=== PATIENT | male | born 1955 | race Caucasian/White ===

== ENCOUNTER 2018-11-28 12:16 | Emergency (ER) | payer OTHER ==
--- OUTSIDE RECORDS SUMMARY | 2018-11-28 12:23 | XMS REPORT | Clinical Summary ---
:1955 Author Organization [facility] Address [address] [place] [address] Care Team Providers Name Role Phone Yareli Primary Care Provider Allergies No Known Allergies Medications Medication Sig Dispensed Refills Start Date End Date Status allopurinol (ZYLOPRIM) Take 100 mg by 0 Active 100 MG tablet mouth daily. aspirin 81 MG chewable Take 81 mg by 0 Active tablet mouth daily. atorvastatin (LIPITOR) Take 40 mg by 0 Active 40 MG tablet mouth daily. furosemide (LASIX) 20 Take 20 mg by 0 Active MG tablet mouth 3 (three) times daily. gabapentin (NEURONTIN) Take 200 mg by 0 Active 100 MG capsule mouth 3 (three) times daily. lamoTRIgine (LAMICTAL) Take 150 mg by 0 Active 150 MG tablet mouth every 12 (twelve) hours. levETIRAcetam (KEPPRA) Take 500 mg by 0 Active 500 MG tablet mouth every 12 (twelve) hours. lisinopril Take 40 mg by 0 Active (PRINIVIL,ZESTRIL) 40 mouth daily. MG tablet metFORMIN (GLUCOPHAGE) Take 500 mg by 0 Active 500 MG tablet mouth 2 (two) times daily with breakfast and dinner. metoprolol (TOPROL-XL) Take 100 mg by 0 Active 100 MG 24 hr tablet mouth daily. phenytoin (DILANTIN) Take 200 mg by 0 Active 100 MG ER capsule mouth 2 (two) times daily. saxagliptin 5 mg Tab Take 2.5 mg by 0 Active mouth daily. thiamine 100 MG tablet Take 100 mg by 0 Active mouth daily. lacosamide 200 mg Tab Take 1 tablet (200 60 tablet 3 07/01/2017 Active mg total) by mouth 2 (two) times daily. 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 Last Filed Vital Signs Not on file Plan of Treatment Not on file Results Not on fileafter 11/27/2017 Insurance Payer Benefit Plan / Group Subscriber ID Type Phone Address MEDICARE MEDICARE A B xxxxxxxxxx Medicare Advance Directives For more information, please contact:[address] [phone] Code Status Date Activated Date Inactivated Comments Full Code 06/25/2017 9:02 PM 07/01/2017 12:56 PM This code status was determined by: Patient
--- OUTSIDE RECORDS SUMMARY | 2018-11-28 12:25 | XMS REPORT ---
:1955 [facility] Address [address] [place] [id number] Care Team Providers Name Role Phone MARY NICHOLE Unavailable Unavailable Problems This patient has no known problems. Allergies, Adverse Reactions, Alerts This patient has no known allergies or adverse reactions. Medications This patient has no known medications. Results Test Description Test Time Test Comments Text Results Atomic Results Result Comments BLOOD CULTURE 2017-07-03 00:00:00 Test Item Value Reference Range Comments CULTURE (BEAKER) (test idih=2258) No growth in 5 days BRONCHIAL CULTURE + GRAM [id number] 14:14:00 Test Item Value Reference Range Comments CULTURE (BEAKER) (test 1+ Normal respiratory deepali pvbj=8188) present GRAM STAIN RESULT (BEAKER) 1+ WBCs (test lvuh=6985) GRAM STAIN RESULT (BEAKER) No organisms seen (test ptjx=33403) BLOOD [id number] 11:00:00 Test Item Value Reference Range Comments CULTURE (BEAKER) (test tryn=1104) No growth in 5 days POCT-GLUCOSE [id number] 06:39:00 Test Item Value Reference Range Comments POC-GLUCOSE METER (BEAKER) 131 mg/dL 70-110 TESTED AT [place] [id number] [facility] (test nkdc=0206) [facility] [address] POCT-GLUCOSE [id number] 00:42:00 Test Item Value Reference Range Comments POC-GLUCOSE METER (BEAKER) 180 mg/dL 70-110 TESTED AT [place] [id number] [facility] (test yyga=3095) [facility] [address] POCT-GLUCOSE [id number] 18:26:00 Test Item Value Reference Range Comments POC-GLUCOSE METER (BEAKER) 111 mg/dL 70-110 TESTED AT [address] (test nfol=3627) [facility] [address] [id number] 14:23:00 Test Item Value Reference Range Comments PROCALCITONIN (BEAKER) (test wvtx=4235) < ng/mL <0.05 SEPSIS RISK (ng/mL)Low: 0.05-0.50Intermediate: 0.51-2.00High: & gt;=2.01PHENYTOIN LEVEL, [id number] 12:31:00 Test Item Value Reference Range Comments PHENYTOIN (DILANTIN) (BEAKER) (test mufn=899) 7.9 ug/mL 10.0-20.0 VANCOMYCIN LEVEL, [id number] 12:25:00 Test Item Value Reference Range Comments VANCOMYCIN TROUGH (BEAKER) (test cmtu=725) 7.8 ug/mL 10.0-20.0 BASIC METABOLIC [id number] 12:06:00 Test Item Value Reference Range Comments SODIUM (BEAKER) (test 143 meq/L 136-145 idrn=733) POTASSIUM (BEAKER) (test 3.8 meq/L 3.5-5.1 sujz=119) CHLORIDE (BEAKER) (test 106 meq/L 98-107 kold=407) CO2 (BEAKER) (test 29 meq/L 22-29 akuc=425) BLOOD UREA NITROGEN 9 mg/dL 7-21 (BEAKER) (test sqxj=865) CREATININE (BEAKER) (test 0.77 mg/dL 0.57-1.25 srvx=202) GLUCOSE RANDOM (BEAKER) 158 mg/dL 70-105 (test hjsr=067) CALCIUM (BEAKER) (test 8.5 mg/dL 8.4-10.2 jxbt=498) EGFR (BEAKER) (test 102 mL/min/1.73 sq m ESTIMATED GFR IS NOT jyjj=1020) ACCURATE CREATININE CLEARANCE IN PREDICTING GLOMERULAR FILTRATION RATE. ESTIMATED GFR IS NOT APPLICABLE FOR DIALYSIS PATIENTS. [id number] 12:06:00 Test Item Value Reference Range Comments ALBUMIN (BEAKER) (test wpsa=4581) 3.2 g/dL 3.5-5.0 CBC W/PLT COUNT & AUTO [id number] 11:52:00 Test Item Value Reference Range Comments WHITE BLOOD CELL COUNT (BEAKER) (test hhii=902) 5.3 K/ L 3.5-10.5 RED BLOOD CELL COUNT (BEAKER) (test snuf=711) 3.64 M/ L 4.63-6.08 HEMOGLOBIN (BEAKER) (test ysqq=656) 11.0 GM/DL 13.7-17.5 HEMATOCRIT (BEAKER) (test exfw=857) 34.0 % 40.1-51.0 MEAN CORPUSCULAR VOLUME (BEAKER) (test ndmo=466) 93.4 fL 79.0-92.2 MEAN CORPUSCULAR HEMOGLOBIN (BEAKER) (test 30.2 pg 25.7-32.2 xccp=925) MEAN CORPUSCULAR HEMOGLOBIN CONC (BEAKER) (test 32.4 GM/DL 32.3-36.5 qnrb=894) RED CELL DISTRIBUTION WIDTH (BEAKER) (test 14.1 % 11.6-14.4 dnus=456) PLATELET COUNT (BEAKER) (test hnzq=411) 159 K/CU MM 150-450 MEAN PLATELET VOLUME (BEAKER) (test uvdd=757) 9.7 fL 9.4-12.4 NUCLEATED RED BLOOD CELLS (BEAKER) (test 0 /100 WBC 0-0 aceo=698) NEUTROPHILS RELATIVE PERCENT (BEAKER) (test 67 % xyee=939) LYMPHOCYTES RELATIVE PERCENT (BEAKER) (test 17 % wzwi=872) MONOCYTES RELATIVE PERCENT (BEAKER) (test 10 % itnc=603) EOSINOPHILS RELATIVE PERCENT (BEAKER) (test 5 % oxsc=540) BASOPHILS RELATIVE PERCENT (BEAKER) (test 1 % ldid=673) NEUTROPHILS ABSOLUTE COUNT (BEAKER) (test 3.55 K/ L 1.78-5.38 ermc=991) LYMPHOCYTES ABSOLUTE COUNT (BEAKER) (test 0.88 K/ L 1.32-3.57 tkny=730) MONOCYTES ABSOLUTE COUNT (BEAKER) (test 0.50 K/ L 0.30-0.82 tcns=203) EOSINOPHILS ABSOLUTE COUNT (BEAKER) (test 0.27 K/ L 0.04-0.54 prbj=134) BASOPHILS ABSOLUTE COUNT (BEAKER) (test 0.03 K/ L 0.01-0.08 aego=288) IMMATURE GRANULOCYTES-RELATIVE PERCENT (BEAKER) 1 % 0-1 (test clyx=9166) POCT-GLUCOSE [id number] 11:47:00 Test Item Value Reference Range Comments POC-GLUCOSE METER (BEAKER) 152 mg/dL 70-110 TESTED AT [address] (test jnag=9749) [facility] [address] POCT-GLUCOSE [id number] 07:09:00 Test Item Value Reference Range Comments POC-GLUCOSE METER (BEAKER) 115 mg/dL 70-110 TESTED AT [address] (test jqfc=4073) [facility] [address] POCT-GLUCOSE [id number] 20:55:00 Test Item Value Reference Range Comments POC-GLUCOSE METER (BEAKER) 142 mg/dL 70-110 TESTED AT [address] (test mfjx=3558) [facility] [address] POCT-GLUCOSE [id number] 17:52:00 Test Item Value Reference Range Comments POC-GLUCOSE METER (BEAKER) 132 mg/dL 70-110 TESTED AT [address] (test wfkx=6364) [facility] [address] POCT-GLUCOSE [id number] 12:52:00 Test Item Value Reference Range Comments POC-GLUCOSE METER (BEAKER) 144 mg/dL 70-110 TESTED AT [address] (test epoc=7381) [facility] [address] VANCOMYCIN LEVEL, [id number] 10:12:00 Test Item Value Reference Range Comments VANCOMYCIN TROUGH (BEAKER) (test chen=167) 5.4 ug/mL 10.0-20.0 SPUTUM CULTURE + GRAM [id number] 10:09:00 Test Item Value Reference Range Comments CULTURE (BEAKER) (test 4+ Normal respiratory deepali ekht=3053) present GRAM STAIN RESULT (BEAKER) 1+ WBCs (test lyyt=2456) GRAM STAIN RESULT (BEAKER) 0-5 epithelial cells (test uhpu=67912) GRAM STAIN RESULT (BEAKER) <1+ gram negative rods (test vtzn=58787) GRAM STAIN RESULT (BEAKER) 2+ gram positive cocci in chains (test xlxy=118362) and pairs PHENYTOIN LEVEL, TOTAL AND [id number] 08:15:00 Test Item Value Reference Range Comments PHENYTOIN (DILANTIN) (BEAKER) (test bora=459) 10.2 ug/mL 10.0-20.0 PHENYTOIN FREE (BEAKER) (test iecv=072) 1.36 mcg/ml 1.00-2.00 RAD, CHEST, 1 VIEW, NON [id number] 08:01:00Reason for exam:->Intubated patientShould this be performed at the bedside?->YesFINAL REPORT Chest one view. Clinical history: Intubated patient Comparison: Discussion: A frontal chest is provided. ET appears retracted and is at the level of the thoracic inlet, approximately 7 cm above the oscar. Feeding tube projects below the diaphragm. Cardiomediastinal contours are unchanged. Low lung volume, with questionable mild central vascular congestion. No new consolidation. No pneumothorax, or large effusion. Signed: Radha Eric Verified Date/Time: 06/29/2017 08:01:47 Reading Location: [facility] Radiology Reading Room Electronically signed by: RADHA ERIC M.D. on 06/29 08:01 AMPOCT-GLUCOSE [id number] 07:36:00 Test Item Value Reference Range Comments POC-GLUCOSE METER (BEAKER) 131 mg/dL 70-110 TESTED AT [facility] [address] [facility] (test zcyk=0418) [facility] [address] PHENYTOIN LEVEL, [id number] 05:10:00 Test Item Value Reference Range Comments PHENYTOIN (DILANTIN) (BEAKER) (test qqio=467) 6.6 ug/mL 10.0-20.0 BLOOD GAS, [id number] 04:59:00 Test Item Value Reference Range Comments PH ARTERIAL (BEAKER) (test gevi=647) 7.43 7.35-7.45 PCO2 ARTERIAL (BEAKER) (test iozk=915) 43 mmHg 35-45 PO2 ARTERIAL (BEAKER) (test umvn=261) 105 mmHg 80-90 O2 SATURATION ARTERIAL (BEAKER) (test wtua=581) 97.8 % 96.0-97.0 HCO3 ARTERIAL (BEAKER) (test odqq=731) 28 mmol/L 21-29 BASE EXCESS ARTERIAL (BEAKER) (test amca=321) 3.3 mmol/L -2.0-3.0 PATIENT TEMPERATURE (BEAKER) (test iyxz=7913) 37.5 C FIO2 (BEAKER) (test yjss=5564) 40.0 % BASIC METABOLIC [id number] 04:17:00 Test Item Value Reference Range Comments SODIUM (BEAKER) (test 141 meq/L 136-145 tdbd=555) POTASSIUM (BEAKER) (test 4.1 meq/L 3.5-5.1 Specimen slightly osxz=535) hemolyzed CHLORIDE (BEAKER) (test 108 meq/L 98-107 lbjc=075) CO2 (BEAKER) (test 26 meq/L 22-29 qqow=310) BLOOD UREA NITROGEN 9 mg/dL 7-21 (BEAKER) (test xsum=287) CREATININE (BEAKER) (test 0.78 mg/dL 0.57-1.25 Specimen slightly jefv=995) hemolyzed GLUCOSE RANDOM (BEAKER) 143 mg/dL 70-105 (test zsrh=672) CALCIUM (BEAKER) (test 8.1 mg/dL 8.4-10.2 izjy=650) EGFR (BEAKER) (test 101 mL/min/1.73 sq m ESTIMATED GFR IS NOT fieo=8786) ACCURATE CREATININE CLEARANCE IN PREDICTING GLOMERULAR FILTRATION RATE. ESTIMATED GFR IS NOT APPLICABLE FOR DIALYSIS PATIENTS. CBC W/PLT COUNT & AUTO [id number] 04:01:00 Test Item Value Reference Range Comments WHITE BLOOD CELL COUNT (BEAKER) (test loyo=173) 5.1 K/ L 3.5-10.5 RED BLOOD CELL COUNT (BEAKER) (test tooi=528) 3.45 M/ L 4.63-6.08 HEMOGLOBIN (BEAKER) (test qvia=674) 10.6 GM/DL 13.7-17.5 HEMATOCRIT (BEAKER) (test byqs=425) 32.4 % 40.1-51.0 MEAN CORPUSCULAR VOLUME (BEAKER) (test tseh=882) 93.9 fL 79.0-92.2 MEAN CORPUSCULAR HEMOGLOBIN (BEAKER) (test 30.7 pg 25.7-32.2 dlqg=894) MEAN CORPUSCULAR HEMOGLOBIN CONC (BEAKER) (test 32.7 GM/DL 32.3-36.5 hztr=218) RED CELL DISTRIBUTION WIDTH (BEAKER) (test 14.5 % 11.6-14.4 ewge=679) PLATELET COUNT (BEAKER) (test wcwn=289) 143 K/CU MM 150-450 MEAN PLATELET VOLUME (BEAKER) (test fyyu=867) 10.1 fL 9.4-12.4 NUCLEATED RED BLOOD CELLS (BEAKER) (test 0 /100 WBC 0-0 frcf=587) NEUTROPHILS RELATIVE PERCENT (BEAKER) (test 62 % vupi=927) LYMPHOCYTES RELATIVE PERCENT (BEAKER) (test 22 % lxkn=489) MONOCYTES RELATIVE PERCENT (BEAKER) (test 9 % pgdr=009) EOSINOPHILS RELATIVE PERCENT (BEAKER) (test 5 % txbs=750) BASOPHILS RELATIVE PERCENT (BEAKER) (test 1 % nzcw=305) NEUTROPHILS ABSOLUTE COUNT (BEAKER) (test 3.13 K/ L 1.78-5.38 vpsh=871) LYMPHOCYTES ABSOLUTE COUNT (BEAKER) (test 1.11 K/ L 1.32-3.57 rphf=619) MONOCYTES ABSOLUTE COUNT (BEAKER) (test 0.47 K/ L 0.30-0.82 zufv=498) EOSINOPHILS ABSOLUTE COUNT (BEAKER) (test 0.24 K/ L 0.04-0.54 aljb=472) BASOPHILS ABSOLUTE COUNT (BEAKER) (test 0.03 K/ L 0.01-0.08 xshh=469) IMMATURE GRANULOCYTES-RELATIVE PERCENT (BEAKER) 1 % 0-1 (test xnnf=2275) POCT-GLUCOSE [id number] 03:14:00 Test Item Value Reference Range Comments POC-GLUCOSE METER (BEAKER) 173 mg/dL 70-110 TESTED AT [address] (test sfyl=6491) [place] [address] POCT-GLUCOSE [id number] 20:51:00 Test Item Value Reference Range Comments POC-GLUCOSE METER (BEAKER) 144 mg/dL 70-110 TESTED AT [address] (test mung=5542) [place] [address] POCT-GLUCOSE [id number] 12:37:00 Test Item Value Reference Range Comments POC-GLUCOSE METER (BEAKER) 181 mg/dL 70-110 TESTED AT [address] (test ytvp=9157) [place] [address] URINE [id number] 10:22:00 Test Item Value Reference Range Comments CULTURE (BEAKER) (test jylz=3393) <10,000 col/mL skin deepali SPUTUM CULTURE + GRAM [id number] 09:59:00 Test Item Value Reference Range Comments CULTURE (BEAKER) Organism(s) under <1+ Streptococcus not group A (test bbyh=9994) evaluation beta hemolyticIdentified by serological grouping. GRAM STAIN RESULT 4+ WBCs (BEAKER) (test vbyh=5061) GRAM STAIN RESULT 5-10 epithelial cells (BEAKER) (test syad=349361) GRAM STAIN RESULT 1+ gram positive (BEAKER) (test cocci in chains azps=725282) 4+ Normal respiratory deepali presentRAD, CHEST, 1 VIEW, NON [id number] 09:13: 00Reason for exam:->Intubated patientShould this be performed at the bedside? ->YesFINAL REPORT Chest one view INDICATION: Intubated COMPARISON: 06/27/2017 IMPRESSION: ET tube and feeding tube are again noted. There are low lung volumes with pulmonary vascular congestion and stable interstitial and airspace opacities, in part due to edema and atelectasis. Superimposed pneumonitis cannot be excluded particularly at the bases. There is costophrenic angle blunting. The cardiomediastinal contours are stable. No pneumothorax is seen. Signed: Barbara Krishnamurthy MDReport Verified Date/Time: 06/28/2017 09:13:33 Reading Location: [facility] Radiology Reading Room BLOOD GAS, [id number] 05:54:00 Test Item Value Reference Range Comments PH ARTERIAL (BEAKER) (test swri=722) 7.40 7.35-7.45 PCO2 ARTERIAL (BEAKER) (test gwsu=575) 48 mmHg 35-45 PO2 ARTERIAL (BEAKER) (test bpvb=235) 109 mmHg 80-90 O2 SATURATION ARTERIAL (BEAKER) (test rvju=120) 97.9 % 96.0-97.0 HCO3 ARTERIAL (BEAKER) (test ybsn=246) 29 mmol/L 21-29 BASE EXCESS ARTERIAL (BEAKER) (test rouw=644) 3.5 mmol/L -2.0-3.0 PATIENT TEMPERATURE (BEAKER) (test nbhp=2220) 37.2 C FIO2 (BEAKER) (test hpeb=3643) 40.0 % CBC W/PLT COUNT & AUTO [id number] 05:11:00 Test Item Value Reference Range Comments WHITE BLOOD CELL COUNT (BEAKER) (test ubbu=122) 6.0 K/ L 3.5-10.5 RED BLOOD CELL COUNT (BEAKER) (test rvva=888) 3.38 M/ L 4.63-6.08 HEMOGLOBIN (BEAKER) (test nznl=714) 10.4 GM/DL 13.7-17.5 HEMATOCRIT (BEAKER) (test pvez=687) 32.2 % 40.1-51.0 MEAN CORPUSCULAR VOLUME (BEAKER) (test zmyh=334) 95.3 fL 79.0-92.2 MEAN CORPUSCULAR HEMOGLOBIN (BEAKER) (test 30.8 pg 25.7-32.2 bjti=056) MEAN CORPUSCULAR HEMOGLOBIN CONC (BEAKER) (test 32.3 GM/DL 32.3-36.5 oiqb=083) RED CELL DISTRIBUTION WIDTH (BEAKER) (test 14.6 % 11.6-14.4 hstq=770) PLATELET COUNT (BEAKER) (test httl=374) 146 K/CU MM 150-450 MEAN PLATELET VOLUME (BEAKER) (test tqce=282) 9.9 fL 9.4-12.4 NUCLEATED RED BLOOD CELLS (BEAKER) (test 0 /100 WBC 0-0 dcxk=798) NEUTROPHILS RELATIVE PERCENT (BEAKER) (test 69 % nomd=177) LYMPHOCYTES RELATIVE PERCENT (BEAKER) (test 17 % oifa=605) MONOCYTES RELATIVE PERCENT (BEAKER) (test 11 % zgrx=825) EOSINOPHILS RELATIVE PERCENT (BEAKER) (test 3 % voic=119) BASOPHILS RELATIVE PERCENT (BEAKER) (test 0 % cqdm=392) NEUTROPHILS ABSOLUTE COUNT (BEAKER) (test 4.10 K/ L 1.78-5.38 ojpw=116) LYMPHOCYTES ABSOLUTE COUNT (BEAKER) (test 1.02 K/ L 1.32-3.57 nrvl=528) MONOCYTES ABSOLUTE COUNT (BEAKER) (test 0.64 K/ L 0.30-0.82 hten=344) EOSINOPHILS ABSOLUTE COUNT (BEAKER) (test 0.18 K/ L 0.04-0.54 iydp=878) BASOPHILS ABSOLUTE COUNT (BEAKER) (test 0.02 K/ L 0.01-0.08 aofr=884) IMMATURE GRANULOCYTES-RELATIVE PERCENT (BEAKER) 0 % 0-1 (test xwif=8596) BASIC METABOLIC [id number] 05:09:00 Test Item Value Reference Range Comments SODIUM (BEAKER) (test 140 meq/L 136-145 kogz=537) POTASSIUM (BEAKER) (test 3.9 meq/L 3.5-5.1 djxh=040) CHLORIDE (BEAKER) (test 107 meq/L 98-107 ytlj=508) CO2 (BEAKER) (test 25 meq/L 22-29 dznd=948) BLOOD UREA NITROGEN 15 mg/dL 7-21 (BEAKER) (test srse=612) CREATININE (BEAKER) (test 0.84 mg/dL 0.57-1.25 wisa=237) GLUCOSE RANDOM (BEAKER) 165 mg/dL 70-105 (test ioku=685) CALCIUM (BEAKER) (test 8.1 mg/dL 8.4-10.2 eopq=648) EGFR (BEAKER) (test 93 mL/min/1.73 sq m ESTIMATED GFR IS NOT fifx=4505) ACCURATE CREATININE CLEARANCE IN PREDICTING GLOMERULAR FILTRATION RATE. ESTIMATED GFR IS NOT APPLICABLE FOR DIALYSIS PATIENTS. POCT-GLUCOSE [id number] 00:21:00 Test Item Value Reference Range Comments POC-GLUCOSE METER (BEAKER) 140 mg/dL 70-110 TESTED AT [address] (test yogz=7515) [facility] [address] POCT-GLUCOSE [id number] 18:45:00 Test Item Value Reference Range Comments POC-GLUCOSE METER (BEAKER) 174 mg/dL 70-110 TESTED AT [address] (test ppgr=3372) [facility] [address] LACTIC ACID, VENOUS, WHOLE [id number] 18:33:00 Test Item Value Reference Range Comments LACTATE BLOOD VENOUS (2) (BEAKER) (test 2.7 mmol/L 0.5-2.2 dfom=1256) Effective 01/08/2016: Units/Reference Range ChangeNew: 0.5-2.2 mmol/L Previous: 5 -20 mg/dLSPUTUM CULTURE + GRAM [id number] 17:16:00 Test Item Value Reference Range Comments CULTURE (BEAKER) (test Oropharyngeal contamination, zgjd=2643) specimen rejected. Recollect requested. GRAM STAIN RESULT (BEAKER) <1+ WBCs (test geug=0993) GRAM STAIN RESULT (BEAKER) >25 epithelial cells (test lkvz=27632) GRAM STAIN RESULT (BEAKER) 4+ gram negative rods (test jzlw=17030) GRAM STAIN RESULT (BEAKER) 4+ gram positive rods (test ivac=652282) GRAM STAIN RESULT (BEAKER) 4+ gram positive cocci in chains, (test pqxi=259535) pairs and clusters EEG MONITORING WITH VIDEO RECORDING EACH 24 [id number] 14:02:00Addendum BeginsAddendum form 8:17am-12:55pm: There is continued slowing of the background rhythms, consistent with a moderate encephalopathy. There are no epileptiform features or seizures during this time period. There is significant electrographic artifact from left central electrode C3, making interpretation from this region difficult. Addendum EndsEEG REPORT: [facility] , DATE: [facility] #: [id number] Code: #: R56.9 Unspecified convulsions (780.39)CPT Code: #: 59997: Monitoring for localization of seizure focPROCEDURE: EEG CONDITIONS OF RECORDING: This is a digital EEG performed using disc electrodes placed according to the International 10-20 system of electrode placement. Scalp to scalp and scalp to ear montages were used. No sedation was given.DESCRIPTION OF RECORD: Long-term EEG from 16:17 hrs on 06/26/2017 to 08:17hrs on 2016.The EEG background is again diffusely attenuated, with background frequency spectrum consisting predominantly of low amplitude 9-11 Hz activity and beta frequencies, with 4-6 Hz thetaactivity and occasional 2-3 Hz delta frequencies. During this recording period, there is some reactivity of the background to stimulation. Neither an occipital dominant rhythm, nor an organized frequency amplitude gradient are well demonstrable.Stages 1 and 2 of sleep were seen as noted by the presence of vertex waves and sleep spindles.IMPRESSION: This is an abnormal EEG study due to moderate slowing of the background rhythms. There is no evidence for electrographic seizure in this record. The EEG appearance is similar to the prior recording period. COMMENT: Diffuse slowing as seen in this record supports an underlying moderate encephalopathy. Some of the faster frequency EEG activity may be related to medication effects. The absence of epileptiform abnormality does not necessarily preclude a clinical diagnosis of epilepsy nor provoked seizure for the symptom(s) of interest.Clinical Fellow: Annie Lirarophysiologist: Bishop Ahuja 02:02 PMPOCT -GLUCOSE [id number] 12:39:00 Test Item Value Reference Range Comments POC-GLUCOSE METER (BEAKER) 182 mg/dL 70-110 TESTED AT [facility] [address] [facility] (test eivm=6564) [facility] [address] PHENYTOIN LEVEL, TOTAL AND [id number] 12:35:00 Test Item Value Reference Range Comments PHENYTOIN (DILANTIN) (BEAKER) (test ilid=942) 12.1 ug/mL 10.0-20.0 PHENYTOIN FREE (BEAKER) (test smch=396) 0.95 mcg/ml 1.00-2.00 [id number] 09:01:00 Test Item Value Reference Range Comments PHOSPHORUS (BEAKER) (test nczq=259) 2.8 mg/dL 2.3-4.7 [id number] 09:01:00 Test Item Value Reference Range Comments MAGNESIUM (BEAKER) (test owgo=671) 2.3 mg/dL 1.6-2.6 RAD, CHEST, 1 VIEW, NON [id number] 06:15:00Reason for exam:->Intubated patientShould this be performed at the bedside?->YesFINAL REPORT RAD, CHEST, 1 VIEW, NON DEPT INDICATION: Intubated patient COMPARISON: Prior day's exam FINDINGS: Portable frontal view of the chest. IMPRESSION: Support Lines: Interval extubation. The feeding tube projects beyond the image volume. Lungs and pleura: Lung volumesare low. Interstitial congestion similar to the prior date. Trace bilateral effusions. No pneumothorax.Heart and mediastinum: The visible mediastinal contours are stable.Additional findings: None. Signed: JR Garcia Robert MDRconnecticut hospice Verified Date/Time: 06/27/2017 06:15:18 Reading Location: [facility] B1 C013Y CT Body Reading Room BLOOD GAS, [id number] 05:11:00 Test Item Value Reference Range Comments PH ARTERIAL (BEAKER) (test lxne=169) 7.42 7.35-7.45 PCO2 ARTERIAL (BEAKER) (test fsqk=894) 46 mmHg 35-45 PO2 ARTERIAL (BEAKER) (test wwts=469) 152 mmHg 80-90 O2 SATURATION ARTERIAL (BEAKER) (test ykqk=074) 99.0 % 96.0-97.0 HCO3 ARTERIAL (BEAKER) (test suas=420) 29 mmol/L 21-29 BASE EXCESS ARTERIAL (BEAKER) (test zzwt=909) 4.3 mmol/L -2.0-3.0 PATIENT TEMPERATURE (BEAKER) (test dhyn=1971) 37.3 C FIO2 (BEAKER) (test fttz=1776) 55.0 % BASIC METABOLIC [id number] 04:59:00 Test Item Value Reference Range Comments SODIUM (BEAKER) (test 139 meq/L 136-145 ulse=896) POTASSIUM (BEAKER) (test 4.0 meq/L 3.5-5.1 neok=287) CHLORIDE (BEAKER) (test 105 meq/L 98-107 sefn=471) CO2 (BEAKER) (test 27 meq/L 22-29 vztr=623) BLOOD UREA NITROGEN 17 mg/dL 7-21 (BEAKER) (test xbqt=927) CREATININE (BEAKER) (test 0.85 mg/dL 0.57-1.25 bmft=526) GLUCOSE RANDOM (BEAKER) 159 mg/dL 70-105 (test soue=635) CALCIUM (BEAKER) (test 8.5 mg/dL 8.4-10.2 zwtn=771) EGFR (BEAKER) (test 91 mL/min/1.73 sq m ESTIMATED GFR IS NOT jyjp=2629) ACCURATE CREATININE CLEARANCE IN PREDICTING GLOMERULAR FILTRATION RATE. ESTIMATED GFR IS NOT APPLICABLE FOR DIALYSIS PATIENTS. CBC W/PLT COUNT & AUTO [id number] 04:36:00 Test Item Value Reference Range Comments WHITE BLOOD CELL COUNT (BEAKER) (test imig=202) 6.7 K/ L 3.5-10.5 RED BLOOD CELL COUNT (BEAKER) (test mbye=538) 3.72 M/ L 4.63-6.08 HEMOGLOBIN (BEAKER) (test pglf=876) 11.1 GM/DL 13.7-17.5 HEMATOCRIT (BEAKER) (test kmwj=362) 35.3 % 40.1-51.0 MEAN CORPUSCULAR VOLUME (BEAKER) (test kcef=307) 94.9 fL 79.0-92.2 MEAN CORPUSCULAR HEMOGLOBIN (BEAKER) (test 29.8 pg 25.7-32.2 gxig=092) MEAN CORPUSCULAR HEMOGLOBIN CONC (BEAKER) (test 31.4 GM/DL 32.3-36.5 ntbv=311) RED CELL DISTRIBUTION WIDTH (BEAKER) (test 14.8 % 11.6-14.4 vrmp=569) PLATELET COUNT (BEAKER) (test ujoc=852) 162 K/CU MM 150-450 MEAN PLATELET VOLUME (BEAKER) (test rtjs=368) 9.5 fL 9.4-12.4 NUCLEATED RED BLOOD CELLS (BEAKER) (test 0 /100 WBC 0-0 jmyy=448) NEUTROPHILS RELATIVE PERCENT (BEAKER) (test 70 % cnlh=498) LYMPHOCYTES RELATIVE PERCENT (BEAKER) (test 16 % odef=513) MONOCYTES RELATIVE PERCENT (BEAKER) (test 11 % ugbd=987) EOSINOPHILS RELATIVE PERCENT (BEAKER) (test 2 % nyzh=457) BASOPHILS RELATIVE PERCENT (BEAKER) (test 0 % tqep=798) NEUTROPHILS ABSOLUTE COUNT (BEAKER) (test 4.69 K/ L 1.78-5.38 xfzj=091) LYMPHOCYTES ABSOLUTE COUNT (BEAKER) (test 1.07 K/ L 1.32-3.57 hqiv=020) MONOCYTES ABSOLUTE COUNT (BEAKER) (test 0.75 K/ L 0.30-0.82 fxap=175) EOSINOPHILS ABSOLUTE COUNT (BEAKER) (test 0.16 K/ L 0.04-0.54 ivmz=763) BASOPHILS ABSOLUTE COUNT (BEAKER) (test 0.02 K/ L 0.01-0.08 ugur=701) IMMATURE GRANULOCYTES-RELATIVE PERCENT (BEAKER) 1 % 0-1 (test uees=4096) POCT-GLUCOSE [id number] 23:11:00 Test Item Value Reference Range Comments POC-GLUCOSE METER (BEAKER) 152 mg/dL 70-110 TESTED AT [facility] [address] [facility] (test lqos=9150) [facility] [address] POCT-GLUCOSE [id number] 19:30:00 Test Item Value Reference Range Comments POC-GLUCOSE METER (BEAKER) 144 mg/dL 70-110 TESTED AT [facility] [address] [facility] (test kzvj=4645) [facility] [address] EEG MONITORING BY COMPUTER EACH 24 [id number] 17:08:00For STAT EEG- after 5 PM weekdays, weekends and holidays, page the on-call EEG TechReason for exam:- >Patient in status epilepticus under sedation and intubatedReason for exam:-& gt;Dr. Ahuja and agreeShould this be performed at the bedside?-> YesEEG REPORT: [facility] DATE: EEG #: [id number] Code: #: R56.9 Unspecified convulsions (780.39)CPT Code: #: 73421: Monitoring for localization of seizure focPROCEDURE: EEG CONDITIONS OF RECORDING: This is a digital EEG performed using disc electrodes placed according to the International 10-20 system of electrode placement. Scalp to scalp and scalp to ear montages were used. No sedation was given.DESCRIPTION OF RECORD: Long-term EEG from 04:17 hrs on 06/26/2017 to 16: 17 hrs on 06/26/2017.The EEG background is again diffusely attenuated, with background frequency spectrum consisting predominantly of low amplitude 9-11 Hz activity and beta frequencies, with 4-6 Hz theta activity and occasional 2-3 Hz delta frequencies. During this recording period, there is some reactivity of the background to stimulation. Neither an occipital dominant rhythm, nor an organized frequency amplitude gradient are well demonstrable.Stages 1 and 2 of sleepwere seen as noted by the presence of vertex waves and sleep spindles. The heart rate was 108/ min.IMPRESSION: This is an abnormal EEG study due to moderate slowing of the background rhythms. There is no evidence for electrographic seizure in this record. The EEG appearance is similar to the prior recording period. COMMENT: Diffuse slowing as seen in this record supports an underlying moderate encephalopathy. Some of the faster frequency EEG activity may be related to medication effects. The absenceof epileptiform abnormality does not necessarily preclude a clinical diagnosis of epilepsy nor provoked seizure for the symptom(s) of interest.Clinical Fellow: Annie Lirarophysiologist: Bishop Ahuja RAD, ABDOMEN/KUB, 1 VIEW [id number] 15:17: 00Reason for exam:->check corpak placement Should this be performed at the bedside?->YesFINAL REPORT Comparison: 06/26/2017 at 8: 05 AM TECHNIQUE: Frontal image of the abdomen FINDINGS: Tip of feeding tube now projects over the distal stomach/proximal duodenum. Signed: Savage Vernon MDReport Verified Date/Time: 06/26/2017 15:17:52 Reading Location: [address] Transitional Reading Room POCT-GLUCOSE [id number] 13:08:00 Test Item Value Reference Range Comments POC-GLUCOSE METER (BEAKER) 134 mg/dL 70-110 TESTED AT [address] (test essd=9848) [facility] [address] BLOOD GAS, [id number] 11:48:00 Test Item Value Reference Range Comments PH ARTERIAL (BEAKER) (test redi=951) 7.39 7.35-7.45 PCO2 ARTERIAL (BEAKER) (test agjx=453) 46 mmHg 35-45 PO2 ARTERIAL (BEAKER) (test tpfv=485) 151 mmHg 80-90 O2 SATURATION ARTERIAL (BEAKER) (test fywx=985) 98.9 % 96.0-97.0 HCO3 ARTERIAL (BEAKER) (test hyaq=266) 27 mmol/L 21-29 BASE EXCESS ARTERIAL (BEAKER) (test xxay=626) 1.8 mmol/L -2.0-3.0 PATIENT TEMPERATURE (BEAKER) (test sqju=2607) 37.5 C FIO2 (BEAKER) (test jtck=8007) 60.0 % RAD, CHEST, 1 VIEW, NON [id number] 11:47:00Reason for exam:-> pneumoniaShould this be performed at the bedside?->YesFINAL REPORT Chest dated 06/26/2017 COMPARISON: June 25, 2017 Clinical Information: pneumonia Comment: Heart is enlarged. Pulmonary vasculature is indistinct. Interstitial disease is seen bilaterally suggestive of vascular congestion or interstitial pulmonary edema improved since prior study. There is trace bilateral pleural effusion. Endotracheal tube and feeding tube are present. Impression: Interval improvement of interstitial pulmonary disease. Signed: Marie Vuong Verified Date/Time: 06/26/2017 11:47:00 Reading Location: [place] [id number] Ortho Consult Reading Room HEMOGLOBIN [id number] 09:40:00 Test Item Value Reference Range Comments HEMOGLOBIN A1C (CATEAKER) (test bgdk=726) 6.3 % 4.3-6.1 RAD, ABDOMEN/KUB, 1 VIEW [id number] 08:34:00Reason for exam:->check corpak placement after repositioning Should this be performed at the bedside?-> YesFINAL REPORT CLINICAL HISTORY: check corpak placement after repositioning TECHNIQUE: Supine abdomen IMPRESSION: The tip of the feeding tube is looped back towards the mid stomach. The partially visualized bowel gas pattern is nonspecific. Signed: Luis Alberto Gonzalezort Verified Date/ Time: 06/26/2017 08:34:03 Reading Location: [place] [address] Neuro Reading Room Electronicallysigned by: LUIS ALBERTO GONZALEZ M.D. on 06/26/2017 08:34 AMRAD, ABDOMEN/KUB, 1 VIEW [id number] 08:08:00Reason for exam:->check corpak placement Should this be performed at the bedside?->YesFINAL REPORT Technique: Frontal image of the abdomen FINDINGS: Tip of the feeding tube projects in the proximal stomach. Bowel gas pattern is nonspecific. Signed: Savage Vernon MDReport Verified Date/Time: 06/26/2017 08:08: 20 Reading Location: [address] Transitional Reading Room [id number] 08:04:00 Test Item Value Reference Range Comments MAGNESIUM (BEAKER) (test diaq=389) 1.7 mg/dL 1.6-2.6 FastingBASIC METABOLIC [id number] 08:04:00 Test Item Value Reference Range Comments SODIUM (BEAKER) (test 141 meq/L 136-145 yhry=536) POTASSIUM (BEAKER) (test 4.6 meq/L 3.5-5.1 bczw=314) CHLORIDE (BEAKER) (test 106 meq/L 98-107 krsa=102) CO2 (BEAKER) (test 18 meq/L 22-29 cfvx=499) BLOOD UREA NITROGEN 24 mg/dL 7-21 (BEAKER) (test ypjn=710) CREATININE (BEAKER) (test 1.13 mg/dL 0.57-1.25 odve=973) GLUCOSE RANDOM (BEAKER) 135 mg/dL 70-105 (test cypq=730) CALCIUM (BEAKER) (test 9.2 mg/dL 8.4-10.2 tgxf=706) EGFR (BEAKER) (test 66 mL/min/1.73 sq m ESTIMATED GFR IS NOT otzl=5680) ACCURATE CREATININE CLEARANCE IN PREDICTING GLOMERULAR FILTRATION RATE. ESTIMATED GFR IS NOT APPLICABLE FOR DIALYSIS PATIENTS. FastingURINALYSIS W/ [id number] 07:22:00 Test Item Value Reference Range Comments COLOR (BEAKER) (test dgcv=329) Yellow CLARITY (BEAKER) (test opty=616) Clear SPECIFIC GRAVITY UA (BEAKER) (test mapp=818) 1.033 1.001-1.035 PH UA (BEAKER) (test lwdh=147) 6.0 5.0-8.0 PROTEIN UA (BEAKER) (test zesb=370) 10 mg/dL Negative GLUCOSE UA (BEAKER) (test ftbw=894) Negative Negative KETONES UA (BEAKER) (test ysqx=380) 20 mg/dL Negative BILIRUBIN UA (BEAKER) (test fumd=733) Negative Negative BLOOD UA (BEAKER) (test zjno=495) Negative Negative NITRITE UA (BEAKER) (test vzsu=692) Negative Negative LEUKOCYTE ESTERASE UA (BEAKER) (test rffk=612) Negative Negative UROBILINOGEN UA (BEAKER) (test baaf=945) 0.2 mg/dL 0.2-1.0 RBC UA (BEAKER) (test dpmt=365) 1 /HPF WBC UA (BEAKER) (test jqqh=184) 3 /HPF MUCUS (BEAKER) (test glkr=0341) Rare SOURCE(BEAKER) (test btti=9310) Urine, Sanchez CREATINE KINASE (CK), TOTAL AND [id number] 06:35:00 Test Item Value Reference Range Comments CREATINE KINASE TOTAL (BEAKER) (test wxdb=167) 158 U/L 29-200 CREATINE KINASE-MB (BEAKER) (test tmmx=354) 0.8 ng/mL 0.0-6.6 CREATINE KINASE-MB INDEX (BEAKER) (test jxtv=266) 0.5 % CK-MB Reference Range:<6.7 Normal6.7-10.0 Borderline>10.0 AbnormalFastingFastingTROPONIN [id number] 06:35:00 Test Item Value Reference Range Comments TROPONIN I (BEAKER) (test yobq=477) < ng/mL 0.00-0.03 Troponin I (TnI) levels must be interpreted in the context of the presenting symptoms and the clinical findings. Elevated TnI levels indicate myocardial damage, but are not specific for ischemic heart disease. Elevated TnI levels are seen in patients with other cardiac conditions (including myocarditis and congestive heart failure), and slight TnI elevations occur in patients with other conditions, including sepsis, renal failure, acidosis, acute neurological disease, and persistent tachyarrhythmia.FastingEEG RECORDING IN COMA/SLEEP [id number] 06:35:00statusNAME: Marie Irvin: [id number] OF EXAMINATION : 06/26/17DATE OF REPORT: 06/26/17START TIME: 3:55amEND TIME: 4:15amEEG NO: 17- [id number]: [id number]: R56.9CPT Code: 30449 - Electroencephalogram (EEG); recording in coma or sleep only HISTORY: 62 y/o M w/ h/o seizures, p/w status epilepticus MEDICATIONS: Maalox, Lipitor, Dulcolax, Peridex, propofol, fentanyl , Lasix, glucagon, Humalog, Keppra, Dilantin, Versed CONDITION OF REPORT: This is a digital EEG study, using the standard International 10-20 System for placement of 22 electrodes, including eye movement leads, and an EKG lead. TECHNICAL SUMMARY: The EEG background was diffusely attenuated with a background frequency spectrum consists predominantly of diffuse disorganized, low amplitude 9-11 Hz alpha and intermixed beta frequencies, with occasional 4- 6 Hz theta and occasional 2-3 Hz delta frequencies. With stimulation to the patient, thereis mild reactivity in the background to external stimulation. Neither an occipital dominant rhythm, nor an organized frequency amplitude gradient are well demonstrable. There are no sleep features captured. No abnormal waveforms elicited with photic stimulation. Hyperventilation not performed. IMPRESSION: This is an abnormal EEG study due to moderate to severe slowing of the background rhythms. There is no evidence for electrographic seizure in this record. CLINICAL CORRELATION: Diffuse slowing asseen in this record supports an underlying moderate to severe encephalopathy. Some of the faster frequency EEG activity may be related to medication effects. The absence of epileptiform abnormality does not necessarily preclude a clinical diagnosis of epilepsy nor provoked seizure for the symptom(s) of interest. Annie Brito MD , PhDClinical Neurophysiology FellowBishop Ahuja [facility] Physician LIPID [id number] 06:27:00 Test Item Value Reference Range Comments TRIGLYCERIDES (BEAKER) (test ekpf=607) 245 mg/dL CHOLESTEROL (BEAKER) (test fuoe=901) 127 mg/dL HDL CHOLESTEROL (BEAKER) (test dvzf=350) 34 mg/dL LDL CHOLESTEROL CALCULATED (BEAKER) (test 44 mg/dL jquv=643) Triglyceride Reference Range: Low Risk <150 Borderline 150- 199 High Risk 200-499 Very High Risk >=500Cholesterol Reference Range: Low Risk <200 Borderline 200-239 High Risk > 240HDL Cholesterol Reference Range: Low Risk >=60 High Risk <40LDL Cholesterol Reference Range: Optimal <100 Near Optimal 100-129 Borderline 130-159 High 160-189 Very High >=190 FastingBLOOD GAS, [id number] 06:22:00 Test Item Value Reference Range Comments PH ARTERIAL (BEAKER) (test lcep=705) 7.36 7.35-7.45 PCO2 ARTERIAL (BEAKER) (test xxol=311) 45 mmHg 35-45 PO2 ARTERIAL (BEAKER) (test xern=210) 69 mmHg 80-90 O2 SATURATION ARTERIAL (BEAKER) (test yxdw=393) 93.1 % 96.0-97.0 HCO3 ARTERIAL (BEAKER) (test nuom=363) 24 mmol/L 21-29 BASE EXCESS ARTERIAL (BEAKER) (test ohmp=253) -1.3 mmol/L -2.0-3.0 PATIENT TEMPERATURE (BEAKER) (test wsfx=2843) 37.0 C FIO2 (BEAKER) (test xsqk=9417) 60.0 % POCT-GLUCOSE [id number] 03:17:00 Test Item Value Reference Range Comments POC-GLUCOSE METER (BEAKER) 133 mg/dL 70-110 TESTED AT [facility] [address] [facility] (test fozp=4897) [facility] [address] VALPROIC ACID LEVEL, [id number] 02:30:00 Test Item Value Reference Range Comments VALPROIC ACID TOTAL (BEAKER) (test dxpt=318) 93 ug/mL 50-100 Therapeutic range for some clinical conditions may be >100 ug/mLPHENYTOIN LEVEL, [id number] 02:29:00 Test Item Value Reference Range Comments PHENYTOIN (DILANTIN) (BEAKER) (test sqin=430) 2.3 ug/mL 10.0-20.0 [id number] 00:18:00 Test Item Value Reference Range Comments RPR SCREEN (BEAKER) (test mxcs=214) Nonreactive Nonreactive RAD, CHEST, 1 VIEW, NON [id number] 23:30:00Reason for exam:-> intubationShould this be performed at the bedside?->YesFINAL REPORT INDICATION: intubation COMPARISON: Three hours prior TECHNIQUE: Single frontal view of the chest. IMPRESSION: Interval endotracheal intubation terminating 3 cm abovethe oscar. Lung volumes are low with resulting in basilar subsegmental atelectasis and central vascular crowding. The visible mediastinal contours are unchanged. There is no pneumothorax. The regionalskeleton is intact. Signed: JR Jose, Lacey Diazort Verified Date/Time: 06/25/2017 23:30:27 Reading Location: [facility] B1 [id number] CT Body Reading Room CREATINE KINASE (CK), TOTAL AND [id number] 22:03:00 Test Item Value Reference Range Comments CREATINE KINASE TOTAL (BEAKER) (test ohdx=229) 176 U/L 29-200 CREATINE KINASE-MB (BEAKER) (test nfso=304) 0.6 ng/mL 0.0-6.6 CREATINE KINASE-MB INDEX (BEAKER) (test tguq=637) 0.3 % CK-MB Reference Range:<6.7 Normal6.7-10.0 Borderline>10.0 AbnormalTROPONIN [id number] 22:03:00 Test Item Value Reference Range Comments TROPONIN I (BEAKER) (test htbg=935) < ng/mL 0.00-0.03 Troponin I (TnI) levels must be interpreted in the context of the presenting symptoms and the clinical findings. Elevated TnI levels indicate myocardial damage, but are not specific for ischemic heart disease. Elevated TnI levels are seen in patients with other cardiac conditions (including myocarditis and congestive heart failure), and slight TnI elevations occur in patients with other conditions, including sepsis, renal failure, acidosis, acute neurological disease, and persistent tachyarrhythmia.CREATINE KINASE (CK), TOTAL AND [id number] 22:03:00 Test Item Value Reference Range Comments CREATINE KINASE TOTAL (BEAKER) (test netm=196) 177 U/L 29-200 CREATINE KINASE-MB (BEAKER) (test mmut=326) 0.7 ng/mL 0.0-6.6 CREATINE KINASE-MB INDEX (BEAKER) (test zmvl=109) 0.4 % CK-MB Reference Range:<6.7 Normal6.7-10.0 Borderline>10.0 AbnormalTROPONIN [id number] 22:03:00 Test Item Value Reference Range Comments TROPONIN I (BEAKER) (test lqui=421) < ng/mL 0.00-0.03 Troponin I (TnI) levels must be interpreted in the context of the presenting symptoms and the clinical findings. Elevated TnI levels indicate myocardial damage, but are not specific for ischemic heart disease. Elevated TnI levels are seen in patients with other cardiac conditions (including myocarditis and congestive heart failure), and slight TnI elevations occur in patients with other conditions, including sepsis, renal failure, acidosis, acute neurological disease, and persistent tachyarrhythmia.BASIC METABOLIC [id number] 21:55:00 Test Item Value Reference Range Comments SODIUM (BEAKER) (test 142 meq/L 136-145 mwtv=590) POTASSIUM (BEAKER) (test 4.1 meq/L 3.5-5.1 Specimen slightly nmms=138) hemolyzed CHLORIDE (BEAKER) (test 104 meq/L 98-107 outo=846) CO2 (BEAKER) (test 26 meq/L 22-29 kaia=010) BLOOD UREA NITROGEN 23 mg/dL 7-21 (BEAKER) (test wspm=440) CREATININE (BEAKER) (test 1.26 mg/dL 0.57-1.25 Specimen slightly zmps=509) hemolyzed GLUCOSE RANDOM (BEAKER) 119 mg/dL 70-105 (test sofy=660) CALCIUM (BEAKER) (test 9.2 mg/dL 8.4-10.2 mybn=549) EGFR (BEAKER) (test 58 mL/min/1.73 sq m ESTIMATED GFR IS NOT twuv=7348) ACCURATE CREATININE CLEARANCE IN PREDICTING GLOMERULAR FILTRATION RATE. ESTIMATED GFR IS NOT APPLICABLE FOR DIALYSIS PATIENTS. CBC W/PLT COUNT & AUTO [id number] 21:29:00 Test Item Value Reference Range Comments WHITE BLOOD CELL COUNT (BEAKER) (test nasu=266) 6.8 K/ L 3.5-10.5 RED BLOOD CELL COUNT (BEAKER) (test nxua=166) 4.12 M/ L 4.63-6.08 HEMOGLOBIN (BEAKER) (test isxq=891) 12.4 GM/DL 13.7-17.5 HEMATOCRIT (BEAKER) (test tket=625) 38.4 % 40.1-51.0 MEAN CORPUSCULAR VOLUME (BEAKER) (test bfry=718) 93.2 fL 79.0-92.2 MEAN CORPUSCULAR HEMOGLOBIN (BEAKER) (test 30.1 pg 25.7-32.2 pzse=867) MEAN CORPUSCULAR HEMOGLOBIN CONC (BEAKER) (test 32.3 GM/DL 32.3-36.5 acdo=118) RED CELL DISTRIBUTION WIDTH (BEAKER) (test 14.5 % 11.6-14.4 phfj=950) PLATELET COUNT (BEAKER) (test kvjz=257) 186 K/CU MM 150-450 MEAN PLATELET VOLUME (BEAKER) (test cvjf=748) 10.0 fL 9.4-12.4 NUCLEATED RED BLOOD CELLS (BEAKER) (test 0 /100 WBC 0-0 caim=230) NEUTROPHILS RELATIVE PERCENT (BEAKER) (test 66 % ruwj=355) LYMPHOCYTES RELATIVE PERCENT (BEAKER) (test 23 % verj=985) MONOCYTES RELATIVE PERCENT (BEAKER) (test 9 % ghyl=388) EOSINOPHILS RELATIVE PERCENT (BEAKER) (test 2 % uyqp=477) BASOPHILS RELATIVE PERCENT (BEAKER) (test 0 % wknc=918) NEUTROPHILS ABSOLUTE COUNT (BEAKER) (test 4.43 K/ L 1.78-5.38 xrxw=581) LYMPHOCYTES ABSOLUTE COUNT (BEAKER) (test 1.58 K/ L 1.32-3.57 rlxt=316) MONOCYTES ABSOLUTE COUNT (BEAKER) (test 0.58 K/ L 0.30-0.82 aecu=500) EOSINOPHILS ABSOLUTE COUNT (BEAKER) (test 0.10 K/ L 0.04-0.54 xymv=195) BASOPHILS ABSOLUTE COUNT (BEAKER) (test 0.03 K/ L 0.01-0.08 vseo=602) IMMATURE GRANULOCYTES-RELATIVE PERCENT (BEAKER) 1 % 0-1 (test gmlc=2600) CREATINE KINASE (CK), TOTAL AND [id number] 21:02:00 Test Item Value Reference Range Comments CREATINE KINASE TOTAL (BEAKER) (test lpau=752) 169 U/L 29-200 CREATINE KINASE-MB (BEAKER) (test fwmb=339) 0.6 ng/mL 0.0-6.6 CREATINE KINASE-MB INDEX (BEAKER) (test xljd=648) 0.4 % CK-MB Reference Range:<6.7 Normal6.7-10.0 Borderline>10.0 AbnormalTROPONIN [id number] 21:02:00 Test Item Value Reference Range Comments TROPONIN I (BEAKER) (test pkyu=533) < ng/mL 0.00-0.03 Troponin I (TnI) levels must be interpreted in the context of the presenting symptoms and the clinical findings. Elevated TnI levels indicate myocardial damage, but are not specific for ischemic heart disease. Elevated TnI levels are seen in patients with other cardiac conditions (including myocarditis and congestive heart failure), and slight TnI elevations occur in patients with other conditions, including sepsis, renal failure, acidosis, acute neurological disease, and persistent tachyarrhythmia.B-TYPE NATRIURETIC FACTOR (BNP) 21:02:00 Test Item Value Reference Range Comments B-TYPE NATRIURETIC PEPTIDE (BEAKER) (test siri=697) 19 pg/mL 0-100 [id number] 20:54:00 Test Item Value Reference Range Comments MAGNESIUM (BEAKER) (test hcyn=984) 1.4 mg/dL 1.6-2.6 BASIC METABOLIC [id number] 20:54:00 Test Item Value Reference Range Comments SODIUM (BEAKER) (test 141 meq/L 136-145 onrf=100) POTASSIUM (BEAKER) (test 4.2 meq/L 3.5-5.1 gwyg=087) CHLORIDE (BEAKER) (test 103 meq/L 98-107 wuzu=434) CO2 (BEAKER) (test 26 meq/L 22-29 adku=014) BLOOD UREA NITROGEN 23 mg/dL 7-21 (BEAKER) (test jxgz=018) CREATININE (BEAKER) 1.34 mg/dL 0.57-1.25 (test zpvd=538) GLUCOSE RANDOM (BEAKER) 120 mg/dL 70-105 (test ydil=573) CALCIUM (BEAKER) (test 9.0 mg/dL 8.4-10.2 ofmx=558) EGFR (BEAKER) (test 54 mL/min/1.73 sq m INSUFFICIENT CLINICAL DATA cjev=4255) TO CALCULATE ESTIMATED GFR. PT/[id number] 20:49:00 Test Item Value Reference Range Comments PROTIME (BEAKER) (test lbwz=051) 14.1 seconds 11.7-14.7 INR (BEAKER) (test xodg=692) 1.1 <=5.9 PARTIAL THROMBOPLASTIN TIME (BEAKER) (test 26.7 seconds 22.5-36.0 hnpu=743) RECOMMENDED COUMADIN/WARFARIN INR THERAPY RANGESSTANDARD DOSE: 2.0 - 3.0 Includes: PROPHYLAXIS forvenous thrombosis, systemic embolization; TREATMENT for venous thrombosis and/or pulmonary embolus.HIGH RISK: Target INR is 2.5-3.5 for patients with mechanical heart valves.CBC W/PLT COUNT & AUTO [id number] 20:22:00 Test Item Value Reference Range Comments WHITE BLOOD CELL COUNT (BEAKER) (test kchw=486) 5.8 K/ L 3.5-10.5 RED BLOOD CELL COUNT (BEAKER) (test tpxg=156) 4.02 M/ L 4.63-6.08 HEMOGLOBIN (BEAKER) (test ahmd=264) 12.1 GM/DL 13.7-17.5 HEMATOCRIT (BEAKER) (test jynh=375) 38.0 % 40.1-51.0 MEAN CORPUSCULAR VOLUME (BEAKER) (test bfkd=224) 94.5 fL 79.0-92.2 MEAN CORPUSCULAR HEMOGLOBIN (BEAKER) (test 30.1 pg 25.7-32.2 nbmu=885) MEAN CORPUSCULAR HEMOGLOBIN CONC (BEAKER) (test 31.8 GM/DL 32.3-36.5 dggh=673) RED CELL DISTRIBUTION WIDTH (BEAKER) (test 14.5 % 11.6-14.4 epbm=067) PLATELET COUNT (BEAKER) (test smaa=898) 175 K/CU MM 150-450 MEAN PLATELET VOLUME (BEAKER) (test fsgo=074) 9.6 fL 9.4-12.4 NUCLEATED RED BLOOD CELLS (BEAKER) (test 0 /100 WBC 0-0 qjek=495) NEUTROPHILS RELATIVE PERCENT (BEAKER) (test 69 % zkny=779) LYMPHOCYTES RELATIVE PERCENT (BEAKER) (test 19 % zcbn=343) MONOCYTES RELATIVE PERCENT (BEAKER) (test 10 % cuas=472) EOSINOPHILS RELATIVE PERCENT (BEAKER) (test 2 % wset=493) BASOPHILS RELATIVE PERCENT (BEAKER) (test 1 % pfne=391) NEUTROPHILS ABSOLUTE COUNT (BEAKER) (test 4.00 K/ L 1.78-5.38 cqdm=913) LYMPHOCYTES ABSOLUTE COUNT (BEAKER) (test 1.12 K/ L 1.32-3.57 mttl=462) MONOCYTES ABSOLUTE COUNT (BEAKER) (test 0.56 K/ L 0.30-0.82 dnce=376) EOSINOPHILS ABSOLUTE COUNT (BEAKER) (test 0.10 K/ L 0.04-0.54 lsnn=417) BASOPHILS ABSOLUTE COUNT (BEAKER) (test 0.03 K/ L 0.01-0.08 uyqk=910) IMMATURE GRANULOCYTES-RELATIVE PERCENT (BEAKER) 1 % 0-1 (test mwbz=3619) CT, CTANGIO [id number] 20:18:00FINAL REPORT CT head without contrast, CTA head and neck with contrast INDICATION: Right sided weakness, aphasia TECHNIQUE: Axial noncontrast CT images of the head were obtained.Subsequently, axial intravenous contrast enhanced CTA images of the head and neck were obtained. Multiplanar and 3-D volume rendered reconstruction images were generated on a separate workstation for better delineation of the vascular anatomy. This exam was performed according to our departmental doseoptimization program which includes automated exposure control, adjustment of the mA and/or kV according to patient size and/or use of iterative reconstruction technique. COMPARISON: CT head 06/25/2017at 1910 hours FINDINGS: CT head:Previously seen foci of elevated density in the left MCA M1 and proximal M2 segments are no longer evident. No acute territorial infarct is visible on CT. Microvascular ischemic changes are suspected. Please note that CT is insensitive for early or small infarcts. Thereis generalized parenchymal volume loss without hydrocephalus or midline shift. There is minimal chronic sinus mucosal disease. The mastoid air cells and orbits are unremarkable. There are dental caries. The calvarium is intact. CTA neck:Streak artifacts from dense venous contrast and shoulders partially obscure the proximal great vessels and proximal vertebral arteries. There is conventional aortic arch anatomy. There is atherosclerotic plaque in the arch and proximal great vessels without significant stenosis. The common carotid arteries demonstrate no focal stenosis. There is no evident cervical ICA stenosis bilaterally by NASCET criteria. The proximal external carotid arteries are unremarkable.There are mild bilateral vertebral artery V2 segment spondylotic stenoses. Otherwise, no significantvertebral artery stenoses are seen bilaterally. CTA head:There is no significant stenosis or major branch occlusion in the proximal [place] of [place] vessels. The communicating arteries are patent. No saccular aneurysm is identified. Other findings:Multilevel cervical spine degenerative changes are present with moderately severe lower cervical spinal canal stenosis. There are carious teeth with endodontal disease. There are suspected breathing motion artifacts in the imaged lungs. IMPRESSION: 1. No evident cervical ICA stenosis bilaterally by NASCET criteria. 2. Mild vertebral artery V2 segment spondylotic stenoses. 3. No major branch occlusion or significant stenosis in the proximal [place] of [place] vessels. 4. No intracranial hemorrhage or CT findings of acute territorial infarct. 5. Suspected microvascular ischemia for which further characterization with MRI is suggested if there is no contraindication. 6. Substantial cervical spine degenerative changes. Findings discussed with stroke neurology housestaff at 8:00 PM Signed: Barbara Krishnamurthy MDReport Verified Date/Time: 06/25/2017 20:18:03 Reading Location: [facility] Radiology Reading Room Electronically signed by: BARBARA KRISHNAMURTHY M.D. on 2016 08:18 PMCT, CAROTID, [id number] 20:18:00FINAL REPORT CT head without contrast, CTA head and neck with contrast INDICATION: Right sided weakness, aphasia TECHNIQUE: Axial noncontrast CT images of the head were obtained.Subsequently, axial intravenous contrast enhanced CTA images of the head and neck were obtained. Multiplanar and 3-D volume rendered reconstruction images were generated on a separate workstation for better delineation of the vascular anatomy. This exam was performed according to our departmental doseoptimization program which includes automated exposure control , adjustment of the mA and/or kV according to patient size and/or use of iterative reconstruction technique. COMPARISON: CT head 06/25/2017at 1910 hours FINDINGS: CT head:Previously seen foci of elevated density in the left MCA M1 and proximal M2 segments are no longer evident. No acute territorial infarct is visible on CT. Microvascular ischemic changes are suspected. Please note that CT is insensitive for early or small infarcts. Thereis generalized parenchymal volume loss without hydrocephalus or midline shift. There is minimal chronic sinus mucosal disease. The mastoid air cells and orbits are unremarkable. There are dental caries. The calvarium is intact. CTA neck:Streak artifacts from dense venous contrast and shoulders partially obscure the proximal great vessels and proximal vertebral arteries. There is conventional aortic arch anatomy. There is atherosclerotic plaque in the arch and proximal great vessels without significant stenosis. The common carotid arteries demonstrate no focal stenosis. There is no evident cervical ICA stenosis bilaterally by NASCET criteria. The proximal external carotid arteries are unremarkable.There are mild bilateral vertebral artery V2 segment spondylotic stenoses. Otherwise, no significantvertebral artery stenoses are seen bilaterally. CTA head:There is no significant stenosis or major branch occlusion in the proximal [place] of [place] vessels. The communicating arteries are patent. No saccular aneurysm is identified. Other findings:Multilevel cervical spine degenerative changes are present with moderately severe lower cervical spinal canal stenosis. There are carious teeth with endodontal disease. There are suspected breathing motion artifacts in the imaged lungs. IMPRESSION: 1. No evident cervical ICA stenosis bilaterally by NASCET criteria. 2. Mild vertebral artery V2 segment spondylotic stenoses. 3. No major branch occlusion or significant stenosis in the proximal [place] of [place] vessels. 4. No intracranial hemorrhage or CT findings of acute territorial infarct. 5. Suspected microvascular ischemia for which further characterization with MRI is suggested if there is no contraindication. 6. Substantial cervical spine degenerative changes. Findings discussed with stroke neurology housestaff at 8:00 PM Signed: Barbara Krishnamurthy [facility] Verified Date/Time: 06/25/2017 20:18:03 Reading Location: [facility] Radiology Reading Room Electronically signed by: BARBARA KRISHNAMURTHY M.D. on 2016 08:18 PMCT, BRAIN, WITHOUT [id number] 20:18:00FINAL REPORT CT head without contrast, CTA head and neck with contrast INDICATION: Right sided weakness, aphasia TECHNIQUE: Axial noncontrast CT images of the head were obtained.Subsequently, axial intravenous contrast enhanced CTA images of the head and neck were obtained. Multiplanar and 3-D volume rendered reconstruction images were generated on a separate workstation for better delineation of the vascular anatomy. This exam was performed according to our departmental doseoptimization program which includes automated exposure control, adjustment of the mA and/or kV according to patient size and/ or use of iterative reconstruction technique. COMPARISON: CT head 06/25/2017at 1910 hours FINDINGS: CT head:Previously seen foci of elevated density in the left MCA M1 and proximal M2 segments are no longer evident. No acute territorial infarct is visible on CT. Microvascular ischemic changes are suspected. Please note that CT is insensitive for early or small infarcts. Thereis generalized parenchymal volume loss without hydrocephalus or midline shift. There is minimal chronic sinus mucosal disease. The mastoid air cells and orbits are unremarkable. There are dental caries. The calvarium is intact. CTA neck:Streak artifacts from dense venous contrast and shoulders partially obscure the proximal great vessels and proximal vertebral arteries. There is conventional aortic arch anatomy. There is atherosclerotic plaque in the arch and proximal great vessels without significant stenosis. The common carotid arteries demonstrate no focal stenosis. There is no evident cervical ICA stenosis bilaterally by NASCET criteria. The proximal external carotid arteries are unremarkable.There are mild bilateral vertebral artery V2 segment spondylotic stenoses. Otherwise, no significantvertebral artery stenoses are seen bilaterally. CTA head:There is no significant stenosis or major branch occlusion in the proximal [place] of [place] vessels. The communicating arteries are patent. No saccular aneurysm is identified. Other findings:Multilevel cervical spine degenerative changes are present with moderately severe lower cervical spinal canal stenosis. There are carious teeth with endodontal disease. There are suspected breathing motion artifacts in the imaged lungs. IMPRESSION: 1. No evident cervical ICA stenosis bilaterally by NASCET criteria. 2. Mild vertebral artery V2 segment spondylotic stenoses. 3. No major branch occlusion or significant stenosis in the proximal pam[place] of [place] vessels. 4. No intracranial hemorrhage or CT findings of acute territorial infarct. 5. Suspected microvascular ischemia for which further characterization with MRI is suggested if there is no contraindication. 6. Substantial cervical spine degenerative changes. Findings discussed with stroke neurology housestaff at 8: 00 PM Signed: Barbara Krishnamurthy MDRradha Verified Date/Time: 06/25/2017 20: 18:03 Reading Location: [facility] Radiology Reading Room RAD, CHEST, 1 VIEW, NON [id number] 20:15:00Reason for exam:->WeaknessFINAL REPORT History: Weakness. Comparison: None. Findings: A single view ofthe chest is submitted. The examination is limited by low lung volumes and rotation to the left. Thecardiac silhouette is prominent in size but magnified by low lung volumes and portable technique. There is central pulmonary vascular congestion. Bilateral interstitial opacification is also present. These findings may be exaggerated by low lung volumes but could reflect pulmonary interstitial edema.Retrocardiac opacity in the left lower lung may reflect a combination of atelectasis and edema but pneumonitis should be excluded clinically. There is no pneumothorax or acute bony abnormality. Signed: Topher Rai MDRadriaort Verified Date/Time: 06/25/2017 20:15:14 Reading Location: [address] Reading Room CT, BRAIN/STROKE [id number] 19:35:00Reason for exam:->StrokeFINAL REPORT CT head without contrast INDICATION: Right sided weakness, aphasia TECHNIQUE: Axial noncontrast CT images through the head were obtained. Imaging was performed within 24 hours of arrival at the facility. This exam was performed according to our departmental dose optimization program which includes automated exposure control, adjustment of the mA and/or kV accordingto patient size and/or use of iterative reconstruction technique. COMPARISON: None available FINDINGS:There are small left MCA M1 and proximal M2 segment foci of elevated density suspicious for intravascular thrombus with subtle left insular lucency that could reflect earliest evidence of left MCA territory ischemia. Mild microvascular changes are present. Please note that CT is insensitive for earlyor small infarcts. Generalized volume loss and vascular calcifications are noted. There is no hydrocephalus or midline shift. There is minimal chronic sinus mucosal thickening with well aerated mastoidair cells. There is disconjugate gaze. The calvarium is intact. IMPRESSION: Small foci of left MCA M1 and proximal M2 segment elevated density worrisome for intravascular thrombus with insular lucencythat could reflect earliest evidence of MCA territory ischemia given the history. No acute hemorrhage or mass effect. Advise MRI and MRA if there is no contraindication. Findings discussed with Dr. Brooks (ICU neurology) at 7:30 PM Signed: Barbara Krishnamurthy MDReport Verified Date/Time: 06/25/2017 19:35:33 Reading Location: [facility] Radiology Reading Room Electronically signed by: BARBARA KRISHNAMURTHY M.D. on 2016 07:35 PM
[2018-11-28 13:06] LABS: Absolute Lymphocytes (CBC) 1.1 K/uL (0.7-4.9); Absolute Monocytes 0.5 K/uL (0.1-1.3); Absolute Neutrophil 2.6 K/uL (1.8-8.0); Basophils % 0.4 % (0-1.3); Eosinophils % 3.4 % (0-4.4); Lymphocytes % 24.9 % (15.3-44.8); MPV 7.9 fL (7.6-11.3); Monocytes % 11.2 % (3.3-12.3); RBC Red Blood Cell Count 3.99 M/uL (4.33-5.43)
[2018-11-28 13:23] LABS: Albumin 3.5 g/dL (3.4-5.0); Bilirubin Total 0.3 mg/dL (0.2-1.0); Potassium 3.9 mmol/L (3.5-5.1); Protein, Total 7.3 g/dL (6.4-8.2)
[2018-11-28] MEDS ORDERED: PHENYTOIN IV ONE (13:45)
[2018-11-28] MEDS ORDERED: NA CHLORIDE 0.9% IV ONE (13:45)
[2018-11-28] MEDS ORDERED: ONDANSETRON 4 MG/2 ML VIAL ONE (15:03)
--- NOTE | 2018-11-28 16:48 | EDPHYS ---
Physician Documentation [facility] Name: David King Sr Age: 63 yrs Sex: Male : 1955 Arrival Date: 11/28/2018 Time: 12:17 Bed 6 Private MD: [place], [place] ED Physician Lior Valdes HPI: 11/28 16:09 This 63 yrs old Male presents to ER via EMS with complaints of Probable ps1 Seizure. 16:09 The patient has experienced similar episodes in the past. patient reportedly had ps1 seizure like activity today while at the [facility]. Patient is on lamictal, lamotrigine, and phenytoin. He appeared somnolent but not specifically post-ictal. He had another episode in the department witnessed by myself that did not have the appearance of genuine seizure activity. Activity suppressed after confrontation and with checking ocular reflex. He again was not post ictal and was able to answer questions right after the event. . Historical: - Allergies: 12:21 Morphine; sg 12:21 Tetanus Vaccines \T\ Toxoid; sg - Home Meds: 12:23 allopurinol 100 mg Oral tab 1 tab once daily [Active]; gabapentin 100 mg Oral cap 1 sg caps 3 times per day [Active]; metformin 500 mg Oral Tb24 2 tabs 2 times per day [Active]; metoprolol tartrate 50 mg Oral tab 1 tab 2 times per day [Active]; sildenafil 100 mg Oral tab 1 tab prior to intercourse as needed [Active]; trazodone 100 mg Oral tab 1 tab as needed for sleep [Active]; - PMHx: 12:21 Diabetes - NIDDM; Gout; Hyperlipidemia; Hypertension; Seizures; sg 12:31 Dissociative Convulsions; Sleep Apnea; Cognitive Decline; TIA; Anemia; Obesity; sg - PSHx: 12:21 Hernia repair; sg - Immunization history:: Adult Immunizations up to date. - Social history:: Smoking status: Patient/guardian denies using tobacco. - Ebola Screening: : Patient negative for fever greater than or equal to 101.5 degrees Fahrenheit, and additional compatible Ebola Virus Disease symptoms Patient denies exposure to infectious person Patient denies travel to an Ebola-affected area in the 21 days before illness onset No symptoms or risks identified at this time. ROS: 16:09 Unable to obtain ROS due to patient being uncooperative. ps1 Exam: 16:09 Constitutional: This is a well developed, well nourished patient who is awake, alert, ps1 and in no acute distress. Head/Face: Normocephalic, atraumatic. Chest/axilla: Normal chest wall appearance and motion. Nontender with no deformity. No lesions are appreciated. Cardiovascular: Regular rate and rhythm. No gallops, murmurs, or rubs. Normal PMI, no JVD. No pulse deficits. Respiratory: Lungs have equal breath sounds bilaterally, clear to auscultation and percussion. No rales, rhonchi or wheezes noted. No increased work of breathing, no retractions or nasal flaring. Abdomen/GI: Soft, non-tender, with normal bowel sounds. No distension or tympany. No guarding or rebound. No evidence of tenderness throughout. MS/ Extremity: Pulses equal, no cyanosis. Neurovascular intact. Full, normal range of motion. Neuro: Awake and alert, GCS 15, oriented to person, place, time, and situation. Cranial nerves II-XII grossly intact. Sensory grossly intact. 16:09 Psych: Behavior/mood is uncooperative, Affect is flat. Vital Signs: 12:27 BP 125 / 68; Pulse 78; Resp 18 S; Temp 98.2; Pulse Ox 100% ; Weight 115.67 kg; Height 6 sg ft. 0 in. (182.88 cm); Pain 0/10; 13:27 BP 124 / 84; Pulse 84; Resp 17; Pulse Ox 100% on R/A; dh3 14:27 BP 127 / 66; Pulse 85; Resp 18; Pulse Ox 98% on R/A; dh3 12:27 Body Mass Index 34.58 (115.67 kg, 182.88 cm) sg MDM: 12:57 Patient medically screened. ps1 11/28 12:33 Order name: CBC with Diff ps1 11/28 12:33 Order name: CMP; Complete Time: 13:29 ps1 11/28 12:33 Order name: Lactate; Complete Time: 16:34 ps1 11/28 12:34 Order name: CBC with Automated Diff; Complete Time: 13:13 EDMS Administered Medications: 15:38 Drug: Phenytoin 20 mg/kg Route: IVPB; Rate: calculated rate; Site: Other; bp 16:10 Follow up: Response: No adverse reaction; IV Status: Completed infusion 15:39 Drug: Zofran 4 mg Route: IVP; Site: Other; Disposition: 11/28/18 16:48 Discharged to Home. Impression: Psychogenic Non-Epileptic Seizure (PNES). - Condition is Stable. - Discharge Instructions: Nonepileptic Seizures. - Medication Reconciliation Form, Thank You Letter, Antibiotic Education, Prescription Opioid Use form. - Follow up: [facility]; When: As needed; Reason: Continuance of care. Follow up: Emergency Department; When: As needed; Reason: Worsening of condition. - Problem is an ongoing problem. - Symptoms are unchanged. Signatures: Dispatcher [employer] EDTylor Gaytan RN RN sg Leticia Olvera RN RN iw Augie Gomez RN RN bp Lior Valdes MD MD ps1 Corrections: (The following items were deleted from the chart) 17:05 16:48 11/28/2018 16:48 Discharged to Home. Impression: Psychogenic Non-Epileptic iw Seizure (PNES). Condition is Stable. Forms are Medication Reconciliation Form, Thank You Letter, Antibiotic Education, Prescription Opioid Use. Follow up: [facility]; When: As needed; Reason: Continuance of care. Follow up: Emergency Department; When: As needed; Reason: Worsening of condition. Problem is an ongoing problem. Symptoms are unchanged. ps1
--- NOTE | 2018-11-28 16:48 | ER ---
Nurse's Notes [facility] Name: David King Sr Age: 63 yrs Sex: Male : 1955 Arrival Date: 11/28/2018 Time: 12:17 Bed 6 Private MD: MUSHTAQ LANDIN Diagnosis: Psychogenic Non-Epileptic Seizure (PNES) Presentation: 11/28 12:20 Presenting complaint: EMS states: pt was at the [facility] today for an appointment when he had sg two witnessed seizures, and one in route to the facility with EMS. Transition of care: patient was not received from another setting of care. Onset of symptoms was November 28, 2018. Risk Assessment: Do you want to hurt yourself or someone else? Patient reports no desire to harm self or others. Initial Sepsis Screen: Does the patient meet any 2 criteria? No. Patient's initial sepsis screen is negative. Does the patient have a suspected source of infection? No. Patient's initial sepsis screen is negative. Care prior to arrival: Medication(s) given: Versed 5 mg IM CHART COMPUTER Glucose check: 119. 12:20 Method Of Arrival: EMS: [facility] sg 12:20 Acuity: JENNA 3 sg Historical: - Allergies: 12:21 Morphine; sg 12:21 Tetanus Vaccines \T\ Toxoid; sg - Home Meds: 12:23 allopurinol 100 mg Oral tab 1 tab once daily [Active]; gabapentin 100 mg Oral cap 1 sg caps 3 times per day [Active]; metformin 500 mg Oral Tb24 2 tabs 2 times per day [Active]; metoprolol tartrate 50 mg Oral tab 1 tab 2 times per day [Active]; sildenafil 100 mg Oral tab 1 tab prior to intercourse as needed [Active]; trazodone 100 mg Oral tab 1 tab as needed for sleep [Active]; - PMHx: 12:21 Diabetes - NIDDM; Gout; Hyperlipidemia; Hypertension; Seizures; sg 12:31 Dissociative Convulsions; Sleep Apnea; Cognitive Decline; TIA; Anemia; Obesity; sg - PSHx: 12:21 Hernia repair; sg - Immunization history:: Adult Immunizations up to date. - Social history:: Smoking status: Patient/guardian denies using tobacco. - Ebola Screening: : Patient negative for fever greater than or equal to 101.5 degrees Fahrenheit, and additional compatible Ebola Virus Disease symptoms Patient denies exposure to infectious person Patient denies travel to an Ebola-affected area in the 21 days before illness onset No symptoms or risks identified at this time. Screenin:28 Abuse screen: Denies threats or abuse. Denies injuries from another. Nutritional sg screening: No deficits noted. Tuberculosis screening: No symptoms or risk factors identified. Never had TB. Fall Risk None identified. Assessment: 12:27 Reassessment: pt requesting to go home at this time, pt encouraged to stay in bed for sg ERP exam prior to leaving the ED. pt stated understanding, pt remains in a bed in exam room at this time. 12:43 Reassessment: PT ENGAGING IN RHYTHMIC SZ-LIKE MOTIONS, BUT RETAINS VOLUNTARY REFLEXES bp DURING EPISODE. Vital Signs: 12:27 BP 125 / 68; Pulse 78; Resp 18 S; Temp 98.2; Pulse Ox 100% ; Weight 115.67 kg; Height 6 sg ft. 0 in. (182.88 cm); Pain 0/10; 13:27 BP 124 / 84; Pulse 84; Resp 17; Pulse Ox 100% on R/A; dh3 14:27 BP 127 / 66; Pulse 85; Resp 18; Pulse Ox 98% on R/A; dh3 12:27 Body Mass Index 34.58 (115.67 kg, 182.88 cm) sg ED Course: 12:17 Patient arrived in ED. sg 12:18 MUSHTAQ, MUSHTAQ is Private Physician. sg 12:18 Arm band placed on. sg 12:21 Lior Valdes MD is Attending Physician. ps1 12:26 Triage completed. sg 12:30 Inserted saline lock: 20 gauge in right antecubital area, using aseptic technique. bp Blood collected. 15:30 Lab(s) recollected, by mi, sent to lab. jp3 15:39 Inserted saline lock: 24 gauge in right ,using aseptic technique. LOWER LEG IV bp discontinued. 15:39 Inserted saline lock: 24 gauge in right ,using aseptic technique. Right Lower Leg Blood jp3 collected. 16:47 MUSHTAQ, MUSHTAQ is Referral Physician. ps1 Administered Medications: 15:38 Drug: Phenytoin 20 mg/kg Route: IVPB; Rate: calculated rate; Site: Other; bp 16:10 Follow up: Response: No adverse reaction; IV Status: Completed infusion sg 15:39 Drug: Zofran 4 mg Route: IVP; Site: Other; bp Outcome: 16:48 Discharge ordered by . ps1 17:05 Patient left the ED. iw Signatures: Tylor Ramirez RN RN Leticia Leblanc RN RN Angy Flores 3 Augie Gomez RN RN Lior Elmore MD MD ps1 Ramon Hemphill jp3 Corrections: (The following items were deleted from the chart) 16:43 16:42 Response: No adverse reaction; IV Status: Completed infusion tiesha motley
[2018-11-28 17:34] VITALS: TEMP 98.2
[2018-11-28 17:45] VITALS: BP 127/66; O2SAT 98
== END 2018-11-28 17:05 | disposition home or self-care (01) ==
LOC: ER 12:16
DX: G40.89 Other seizures (principal); F54 Psychological and behavioral factors associated with disorders or diseases classified elsewhere; Z88.6 Allergy status to analgesic agent; Z88.7 Allergy status to serum and vaccine; E11.9 Type 2 diabetes mellitus without complications; E78.5 Hyperlipidemia, unspecified; I10 Essential (primary) hypertension
CPT/HCPCS: 96365; 85025; 36415; 83605; 80053; 96375; 99284; J1165; J2405

== ENCOUNTER 2020-02-21 15:29 | Observation (INO) | payer OTHER ==
--- OUTSIDE RECORDS SUMMARY | 2020-02-21 15:34 | XMS REPORT | Continuity of Care Document ---
:1955 Author Organization [facility] t Address [address] [place] [address] Dr. Claudio [address] [place] [id number] Care Team Providers Name Role Phone Unavailable Unavailable Unavailable Problems This patient has no known problems. Allergies, Adverse Reactions, Alerts This patient has no known allergies or adverse reactions. Medications This patient has no known medications. Procedures This patient has no known procedures. Results This patient has no known results.
[2020-02-21] MEDS ORDERED: ASPIRIN 81 MG CHEWABLE TABLET ONE (16:25)
[2020-02-21 16:38] LABS: Absolute Lymphocytes (CBC) 1.1 K/uL (0.7-4.9); Basophils % 0.4 % (0-1.3); Hematocrit 39.2 % (39.6-49.0); MPV 8.6 fL (7.6-11.3); RBC Red Blood Cell Count 4.17 M/uL (4.33-5.43)
[2020-02-21] MEDS ORDERED: DIAZEPAM 10 MG/2 ML INJ SYRINGE ONE (16:38)
[2020-02-21 17:00] LABS: ALT/SGPT 39 U/L (12-78); AST/SGOT 17 U/L (15-37); Albumin 3.4 g/dL (3.4-5.0); Alkaline Phosphatase 87 U/L (45-117); BUN Blood Urea Nitrogen 14 mg/dL (7-18); Bicarbonate 25 mmol/L (21-32); Bilirubin Direct < 0.1 mg/dL (0-0.2); Bilirubin Total 0.3 mg/dL (0.2-1.0); Glucose Level 133 mg/dL (74-106); Magnesium 1.9 mg/dL (1.8-2.4); NT PRO-BNP 276 pg/mL (<125); Potassium 3.9 mmol/L (3.5-5.1); Protein, Total 6.8 g/dL (6.4-8.2); Sodium Level 144 mmol/L (136-145); Troponin (Emerg Dept Use Only) < 0.02 ng/mL (0.0-0.045)
--- NOTE | 2020-02-21 17:45 | RAD REPORT ---
EXAM DESCRIPTION: [place] Single View02/21/2020 5:04 pm CLINICAL HISTORY: Chest pain COMPARISON: 2015 FINDINGS: The lungs appear clear of acute infiltrate. The heart is borderline enlarged IMPRESSION: No acute abnormalities displayed
--- NOTE | 2020-02-21 18:14 | P.HP ---
Certification for Inpatient Patient admitted to: Observation With expected LOS: <2 Midnights Patient will require the following post-hospital care: None Practitioner: I am a practitioner with admitting privileges, knowledge of patient current condition, hospital course, and medical plan of care. Services: Services provided to patient in accordance with Admission requirements found in Title 42 Section 412.3 of the Code of Federal Regulations Patient History Date of Service: 02/21/20 Primary Care Provider: [facility] Reason for admission: Chest pain History of Present Illness: 65-year-old male with history of CAD, hypertension, diabetes mellitus type 2 non-insulin dependent, gout, posttraumatic stress disorder, hy perlipidemia, neuropathy, and obesity. Patient reports chest pain. Chest pain reported to the substernal region. He has noticed increasing pain as of late. It is associated with some shortness of breath. He or she reports some anxiety. Patient reports a history of posttraumatic stress disorder. No increased stressors other than he is going through therapy and having some flashbacks. Patient further reports a history of CAD in the past. He had a heart catheterization many years ago. He was told he had some stenosis but no intervention was required. He has not followed up with cardiology. Patient also reports increasing blood pressure levels.Patient denies any fever, chills, nausea and vomiting. Patient reports some edema to the lower extremities. Patient further reports that he has history of seizure disorder. He has been taken off of his anti seizure medications 3 months ago. He has not reported any seizures. Patient evaluated emergency room. CBC unremarkable. Sodium 144, potassium 3.9, BUN of 14, creatinine 1.19 with a GFR 61. Glucose 133. Troponin unremarkable. Chest x-ray unremarkable. EKG shows no significant ST changes but bigeminy noted. Patient admitted for further evaluation and treatment. Patient was evaluated for transfer to the [facility] but they were to capacity. Therefore patient remains hospitalized here. When I saw the patient ER, at bedside. Chest pain resolved. Allergies morphine Allergy (Intermediate, Verified 06/02/16 21:26) Hives/Rash Tetanus Vaccines & Toxo Allergy (Intermediate, Uncoded 06/02/16 21:26) Hives/Rash Home medications list reviewed: Yes Home Medications: Gabapentin [Neurontin*] 100 mg PO TID 06/03/16 Metformin HCl [Metformin ER Gastric] 1,000 mg PO BID 06/03/16 Metoprolol Tartrate [Lopressor*] 50 mg PO BID 06/03/16 Trazodone HCl [Desyrel] 100 mg PO PRN PRN 06/03/16 allopurinoL [Allopurinol] 100 mg PO DAILY 06/03/16 PHENYTOIN ER Cap [Dilantin ER Cap*] 100 mg PO TID #90 cap 07/23/16 levETIRAcetam [Keppra*] 2,000 mg PO BID #240 tab 07/23/16 - Past Medical/Surgical History Diabetic: Yes -: Diabetes mellitus type 2 [id number] -: History of seizures -: Gout -: Hyperlipidemia -: Coronary artery disease -: History of skin cancer -: Hypertension -: Diabetic neuropathy -: Posttraumatic stress disorder -: Obesity -: Umbilical hernia repair -: Benign cyst removed from toe -: Variceal surgery Psychosocial/ Personal History: He is , has 2 children, he he is retired. 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 - Family History Father -: Heart disease Mother -: Diabetes - Social History Smoking Status: Never smoker Alcohol use: No CD- Drugs: No Caffeine use: Yes Place of Residence: Home Review of Systems General: As per HPI Eyes: Unremarkable ENT: Unremarkable Respiratory: Shortness of Breath, As per HPI Cardiovascular: Chest Pain, Edema, As per HPI Gastrointestinal: Unremarkable Genitourinary: Unremarkable Musculoskeletal: Pedal edema Integumentary: Unremarkable Neurological: Unremarkable Lymphatics: Unremarkable Physical Examination - Physical Exam General: Alert, In no apparent distress, Oriented x3, Cooperative HEENT: Atraumatic, Normocephalic Neck: Supple Respiratory: Clear to auscultation bilaterally, Normal air movement Cardiovascular: Normal pulses, Regular rate/rhythm Gastrointestinal: Normal bowel sounds, Soft and benign, Non-distended, No tenderness, No masses, No rebound, No guarding Musculoskeletal: Other (Multiple skin tags around the neck line) Integumentary: No erythema, No warmth, No cyanosis, Tenderness/swelling (Mild pitting edema to the lower extremities bilateral) Neurological: Normal speech, Normal strength at 5/5 x4 extr, Normal tone, Abnormal affect (Some anxiety noted) - Studies Laboratory Data (last 24 hrs) 02/21/20 16:26: Triglycerides 221 H, Cholesterol 109, HDL Cholesterol 45, Cholesterol/HDL Ratio 2.42, Lipase 152 02/21/20 16:26: WBC 6.3, Hgb 12.8 L, Hct 39.2 L, Plt Count 182 02/21/20 16:26: Sodium 144, Potassium 3.9, BUN 14, Creatinine 1.19, Glucose 133 H, Magnesium 1.9, Total Bilirubin 0.3, AST 17, ALT 39, Alkaline Phosphatase 87 Assessment and Plan - Plan Impression: Chest pain with mild shortness of breath with history of CAD Hypertension Diabetes mellitus type 2 [id number] Hyperlipidemia Posttraumatic stress disorder History of seizures no longer on medication Gout Diabetic neuropathy Obesity Plan: Chest pain with mild shortness of breath with history of CAD: Patient be admitted for further evaluation and treatment. Will consult cardiology for further evaluation. With his history of CAD and prior heart catheterization showing some disease but no intervention and no follow up, patient will likely require cardiac evaluation. Await further recommendations by Cardiology. Will keep the patient NPO. For now will continue with aspirin, statin medication, metoprolol, lisinopril and Lovenox for DVT prophylaxis. Will continue to monitor cardiac enzymes and telemetry. Will obtain echocardiogram to further evaluate for possible underlying CHF. Will continue with a 1500 cc per day fluid restriction. Will also continue with his Lasix. Anticipate improvement over the next 24 hr. Possible discharge as early as tomorrow if cardiac workup unremarkable. Hypertension: Continue metoprolol and lisinopril. Will increase metoprolol at this time. Continue to adjust for better control. Diabetes mellitus type 2 [id number]: Hold metformin at this time. Will place on a sliding scale. Monitor Accu-Cheks. Hyperlipidemia: Will check fasting lipid panel. Will continue with Lipitor. Posttraumatic stress disorder: Obtain and restart home medication. Patient currently getting medical and cognitive therapy. Patient has been under a great deal of anxiety. Continue follow up with psychiatry as an outpatient. History of seizures no longer on medication: Patient reports that he has been taken off all anti seizure medication over the past 3 months. No seizures noted at this time. Gout: Continue medication Diabetic neuropathy: Continue medication Obesity: Will address lifestyle modification education. Discharge Plan: Home Plan to discharge in: 24 Hours - Advance Directives Does patient have a Living Will: No Does patient have a Durable POA for Healthcare: No - Code Status/Comfort Care Code Status Assessed: Yes (Patient is full code) Time Spent Managing Pts Care (In Minutes): 55
--- NOTE | 2020-02-21 18:19 | ER ---
Nurse's Notes [facility] Name: David King Sr Age: 65 yrs Sex: Male : 1955 Arrival Date: 02/21/2020 Time: 15:30 Bed 2 Private MD: Diagnosis: Chest pain, unspecified;Other specified cardiac arrhythmias-bigeminy Presentation: 02/20 15:39 Chief complaint: SENT FROM [place] FOR CHEST PAIN. Coronavirus screen: Proceed with normal ss triage. Ebola Screen: No symptoms or risks identified at this time. Initial Sepsis Screen: Does the patient meet any 2 criteria? No. Patient's initial sepsis screen is negative. Does the patient have a suspected source of infection? No. Patient's initial sepsis screen is negative. Risk Assessment: Do you want to hurt yourself or someone else? Patient reports no desire to harm self or others. Onset of symptoms is unknown. 15:39 Method Of Arrival: Ambulatory ss 15:39 Acuity: JENNA 2 ss Historical: - Allergies: 15:55 Morphine; ss 15:55 Tetanus Vaccines \\T\\ Toxoid; ss 15:55 Fosphenytoin; ss - Home Meds: 15:55 trazodone 100 mg Oral tab 1 tab as needed for sleep [Active]; hydroxyzine HCl 25 mg ss Oral tab 1 tab twice a day [Active]; metoprolol tartrate 50 mg Oral tab 2 tabs once daily [Active]; gabapentin 300 mg oral cap 2 caps 3 times per day [Active]; atorvastatin 40 mg oral tab 1 tab once daily [Active]; Lasix 20 mg Oral tab 1 tab 2 times per day [Active]; lacosamide oral 200 MG oral 1 tab 2 times per day [Active]; lamotrigine 150 mg oral tab 1 tab 2 times per day [Active]; aspirin 81 mg Oral TbEC 1 tab once daily [Active]; lisinopril 40 mg Oral tab 1 tab once daily [Active]; allopurinol 100 mg Oral tab 1 tab once daily [Active]; metformin 500 mg Oral Tb24 2 tabs 2 times per day [Active]; Phenytoin 200 MG Oral twice a day [Active]; glipizide 5 mg Oral tab 1 tab 2 times per day [Active]; sildenafil 100 mg Oral tab 1 tab prior to intercourse as needed [Active]; quetiapine 50 mg oral tab 1 tab nightly [Active]; sertraline 100 mg oral tab 1.5 tabs once daily [Active]; - PMHx: 15:55 Anemia; Cognitive Decline; Diabetes - NIDDM; Dissociative Convulsions; Gout; ss Hyperlipidemia; Hypertension; Obesity; Seizures; Sleep Apnea; TIA; - Immunization history:: Adult Immunizations up to date. - Social history:: Smoking status: Patient denies any tobacco usage or history of. Screenin:10 Abuse screen: Denies threats or abuse. Nutritional screening: No deficits noted. aa5 Tuberculosis screening: No symptoms or risk factors identified. Fall Risk None identified. Assessment: 16:10 General: Appears uncomfortable, Behavior is calm, cooperative. Pain: Complains of pain aa5 in chest Pain does not radiate. Pain currently is 8 out of 10 on a pain scale. Quality of pain is described as pressure, Pain began 2-3 days ago. Is continuous. Neuro: Level of Consciousness is awake, alert, obeys commands, Oriented to person, place, time, situation. Cardiovascular: Heart tones S1 S2 present Rhythm is regular. Respiratory: Reports shortness of breath Airway is patent Respiratory effort is even, unlabored, Respiratory pattern is regular, symmetrical, Breath sounds are clear bilaterally. GI: Abdomen is round non-distended, Bowel sounds present X 4 quads. Abd is soft and non tender X 4 quads. Patient currently denies nausea, vomiting. : No signs and/or symptoms were reported regarding the genitourinary system. EENT: No signs and/or symptoms were reported regarding the EENT system. Derm: Skin is pink, warm \\T\\ dry. Musculoskeletal: Range of motion: intact in all extremities. 16:30 Reassessment: Pt sleepy after Valium administration, equal and unlabored respirations, aa5 skin is pink/warm/dry. Pt's at bedside. . 16:45 Reassessment: Patient is alert, oriented x 3, equal unlabored respirations, skin aa5 warm/dry/pink. Pt appears more comfortable than initial assessment. Pt states "Valium maybe helped a little bit". Pt's states "he slept for a few minutes". Pt rates chest pressure a 7/10 on a pain scale. . 17:20 Reassessment: Patient is alert, oriented x 3, equal unlabored respirations, skin aa5 warm/dry/pink. 17:30 Reassessment: Dr. Grigsby (Hospitalist) at bedside . aa5 17:50 Reassessment: Patient is alert, oriented x 3, equal unlabored respirations, skin aa5 warm/dry/pink. Pascual Parham NP at bedside notifying pt, [place] facility denied transfer due to being at capacity. . Vital Signs: 15:39 BP 138 / 73; Pulse 80; Resp 16; Temp 97.5; Pulse Ox 99% ; Weight 122.47 kg; Height 5 ss ft. 11 in. (180.34 cm); 16:45 BP 143 / 82; Pulse 79; Resp 16 S; Pulse Ox 99% on 2 lpm NC; aa5 17:30 BP 138 / 92; Pulse 76; Resp 16 S; Pulse Ox 99% on 2 lpm NC; aa5 19:00 BP 118 / 64; Pulse 76; Resp 18; Temp 97.5; Pulse Ox 100% on R/A; mg2 15:39 Body Mass Index 37.66 (122.47 kg, 180.34 cm) ED Course: 15:30 Patient arrived in ED. as 15:39 Arm band placed on. ss 15:41 Triage completed. ss 16:07 Jose Elias Robbins MD is Attending Physician. [facility] 16:10 [facility]C [facility] snw 16:10 Patient has correct armband on for positive identification. Placed in gown. Bed in low aa5 position. Call light in reach. Side rails up X2. child monitor on. Pulse ox on. NIBP on. 16:13 Adriana Zepeda RN is Primary Nurse. aa5 16:26 Initial lab(s) drawn, by tx, sent to lab. Inserted saline lock: 20 gauge in left dh3 antecubital area, using aseptic technique. Blood collected. 17:11 XRAY Chest (1 view) In Process Unspecified. EDMS 18:18 Jhon Grigsby DO is Hospitalizing Provider. snw 18:58 abo rh no charge drawn by me and sent to lab. 3 19:05 Report given to LASHAE Reis. aa5 19:31 No provider procedures requiring assistance completed. Patient maintains SpO2 mg2 saturation greater than 95% on room air. 19:46 Patient admitted, IV remains in place. mg2 Administered Medications: 16:15 Drug: Aspirin Chewable Tablet 243 mg Route: PO; aa5 17:50 Follow up: Response: No adverse reaction aa5 16:30 Drug: Valium 5 mg Route: IVP; Site: left antecubital; aa5 16:47 Follow up: Response: No adverse reaction aa5 Outcome: 18:18 Decision to Hospitalize by Provider. snw 19:45 Admitted to Med/surg accompanied by tech, via wheelchair, room 201, with oxygen, with mg2 chart, Report called to LASHAE Donnelly 19:45 Condition: stable 19:45 Instructed on the need for admit, Demonstrated understanding of instructions. 20:02 Patient left the ED. mg2 Signatures: Dispatcher [employer] EDMS Jose Elias Robbins MD MD cha Therrien, Shelly, CHEMICAL MIXER-C CHEMICAL MIXER-Csnw Sabina Tavarez Audri, RN RN aa5 Juli Schultz RN RN Angy Flores [facility] Chato Hoyos RN RN mg2 Corrections: (The following items were deleted from the chart) 18:10 17:30 BP 138 / 92; Pulse 76bpm; Resp 16bpm; Spontaneous; Pulse Ox 99% RA; aa5 aa5 19:32 19:30 BP 118 / 64; Pulse 76bpm; Resp 18bpm; Pulse Ox 100% RA; Temp 97.5F; mg2 mg2
--- NOTE | 2020-02-21 18:20 | EDPHYS ---
Physician Documentation [facility] Name: David King Sr Age: 65 yrs Sex: Male : 1955 Arrival Date: 02/21/2020 Time: 15:30 Bed 2 Private MD: ED Physician Jose Elias Robbins HPI: 02/20 16:15 This 65 yrs old Male presents to ER via Ambulatory with complaints of Chest snw Pressure, Shortness Of Breath, Abnormal EKG. 16:15 The patient or guardian reports chest pain that is located primarily in the anterior snw chest wall, bilaterally. Onset: suddenly, 3 day(s) ago, and became persistent. The pain does not radiate. Associated signs and symptoms: Pertinent positives: shortness of breath. The chest pain is described as a pressure. Duration: The patient or guardian reports multiple episodes, becoming more constant in nature. Modifying factors: The symptoms are alleviated by nothing. the symptoms are aggravated by nothing. Severity of pain: At its worst the pain was moderate. The patient has not experienced similar symptoms in the past. The patient has been recently seen by a physician: the patient's primary care provider, with similar presenting complaints, and was sent to the [facility] Emergency Department for further evaluation. Historical: - Allergies: 15:55 Morphine; ss 15:55 Tetanus Vaccines \T\ Toxoid; ss 15:55 Fosphenytoin; ss - Home Meds: 15:55 trazodone 100 mg Oral tab 1 tab as needed for sleep [Active]; hydroxyzine HCl 25 mg ss Oral tab 1 tab twice a day [Active]; metoprolol tartrate 50 mg Oral tab 2 tabs once daily [Active]; gabapentin 300 mg oral cap 2 caps 3 times per day [Active]; atorvastatin 40 mg oral tab 1 tab once daily [Active]; Lasix 20 mg Oral tab 1 tab 2 times per day [Active]; lacosamide oral 200 MG oral 1 tab 2 times per day [Active]; lamotrigine 150 mg oral tab 1 tab 2 times per day [Active]; aspirin 81 mg Oral TbEC 1 tab once daily [Active]; lisinopril 40 mg Oral tab 1 tab once daily [Active]; allopurinol 100 mg Oral tab 1 tab once daily [Active]; metformin 500 mg Oral Tb24 2 tabs 2 times per day [Active]; Phenytoin 200 MG Oral twice a day [Active]; glipizide 5 mg Oral tab 1 tab 2 times per day [Active]; sildenafil 100 mg Oral tab 1 tab prior to intercourse as needed [Active]; quetiapine 50 mg oral tab 1 tab nightly [Active]; sertraline 100 mg oral tab 1.5 tabs once daily [Active]; - PMHx: 15:55 Anemia; Cognitive Decline; Diabetes - NIDDM; Dissociative Convulsions; Gout; ss Hyperlipidemia; Hypertension; Obesity; Seizures; Sleep Apnea; TIA; - Immunization history:: Adult Immunizations up to date. - Social history:: Smoking status: Patient denies any tobacco usage or history of. ROS: 16:14 Constitutional: Negative for fever, chills, and weight loss, Eyes: Negative for injury, snw pain, redness, and discharge, ENT: Negative for injury, pain, and discharge, Neck: Negative for injury, pain, and swelling, Abdomen/GI: Negative for abdominal pain, nausea, vomiting, diarrhea, and constipation, Back: Negative for injury and pain, : Negative for injury, bleeding, discharge, and swelling, MS/Extremity: Negative for injury and deformity, Skin: Negative for injury, rash, and discoloration, Neuro: Negative for headache, weakness, numbness, tingling, and seizure. 16:14 Cardiovascular: Positive for chest pain, of the chest. 16:14 Respiratory: Positive for shortness of breath, at rest. 16:14 Psych: Positive for anxiety, depression, hx of panic attacks, PTSD. Exam: 16:12 Constitutional: This is a well developed, well nourished patient who is awake, alert, snw and in no acute distress. Head/Face: Normocephalic, atraumatic. Eyes: Pupils equal round and reactive to light, extra-ocular motions intact. Lids and lashes normal. Conjunctiva and sclera are non-icteric and not injected. Cornea within normal limits. Periorbital areas with no swelling, redness, or edema. ENT: Nares patent. No nasal discharge, no septal abnormalities noted. Tympanic membranes are normal and external auditory canals are clear. Oropharynx with no redness, swelling, or masses, exudates, or evidence of obstruction, uvula midline. Mucous membranes moist. Neck: Trachea midline, no thyromegaly or masses palpated, and no cervical lymphadenopathy. Supple, full range of motion without nuchal rigidity, or vertebral point tenderness. No Meningismus. Chest/axilla: Normal chest wall appearance and motion. Nontender with no deformity. No lesions are appreciated. 16:12 Abdomen/GI: Soft, non-tender, with normal bowel sounds. No distension or tympany. No guarding or rebound. No evidence of tenderness throughout. Back: No spinal tenderness. No costovertebral tenderness. Full range of motion. MS/ Extremity: Pulses equal, no cyanosis. Neurovascular intact. Full, normal range of motion. Neuro: Awake and alert, GCS 15, oriented to person, place, time, and situation. Cranial nerves II-XII grossly intact. Motor strength 5/5 in all extremities. Sensory grossly intact. Cerebellar exam normal. Normal gait. Psych: Awake, alert, with orientation to person, place and time. Behavior, mood, and affect are within normal limits. 16:12 Cardiovascular: Rate: normal, Rhythm: irregular, Pulses: no pulse deficits are appreciated, Heart sounds: normal, Edema: is not appreciated. 16:12 ECG was reviewed by the Attending Physician. 16:12 Respiratory: the patient does not display signs of respiratory distress, Respirations: shallow respirations, splinting, Breath sounds: are clear throughout. 16:12 Skin: Appearance: multiple skin tags and thickening, suspect hyperlipidemia. Vital Signs: 15:39 BP 138 / 73; Pulse 80; Resp 16; Temp 97.5; Pulse Ox 99% ; Weight 122.47 kg; Height 5 ss ft. 11 in. (180.34 cm); 16:45 BP 143 / 82; Pulse 79; Resp 16 S; Pulse Ox 99% on 2 lpm NC; aa5 17:30 BP 138 / 92; Pulse 76; Resp 16 S; Pulse Ox 99% on 2 lpm NC; aa5 19:00 BP 118 / 64; Pulse 76; Resp 18; Temp 97.5; Pulse Ox 100% on R/A; mg2 15:39 Body Mass Index 37.66 (122.47 kg, 180.34 cm) ss MDM: 16:07 Patient medically screened. laura 17:48 The patient was given aspirin in the Emergency Department. Data reviewed: vital signs, snw nurses notes, lab test result(s), EKG, radiologic studies. Data interpreted: Pulse oximetry: on room air is 99 %. Interpretation: normal. Physician consultation: Jhon Grigsby DO was called at 17:48, was contacted at 17:48, regarding admission, to the telemetry unit. also requested transfer to [place], awaiting response. 02/20 16:09 Order name: Basic Metabolic Panel; Complete Time: 17:03 [facility] 02/20 16:09 Order name: CBC with Diff; Complete Time: 17:21 [facility] 02/20 16:09 Order name: LFT's; Complete Time: 17:03 [facility] 02/20 16:09 Order name: Magnesium; Complete Time: 17:03 [facility] 02/20 16:09 Order name: NT PRO-BNP; Complete Time: 17:03 [facility] 02/20 16:09 Order name: Troponin (emerg Dept Use Only); Complete Time: 17:03 [facility] 02/20 16:09 Order name: XRAY Chest (1 view); Complete Time: 17:50 [facility] 02/20 16:09 Order name: EKG; Complete Time: 16:10 [facility] 02/20 16:12 Order name: TS; Complete Time: 18:24 snw 02/20 16:12 Order name: TSH; Complete Time: 17:47 snw 02/20 16:17 Order name: Lipase; Complete Time: 17:59 snw 02/20 16:17 Order name: Lipid Profile; Complete Time: 17:59 snw 02/20 16:09 Order name: Cardiac monitoring; Complete Time: 16:28 [facility] 02/20 16:09 Order name: EKG - Nurse/Tech; Complete Time: 16:28 [facility] 02/20 16:09 Order name: IV Saline Lock; Complete Time: 16:28 [facility] 02/20 16:09 Order name: Labs collected and sent; Complete Time: 16:28 [facility] 02/20 16:09 Order name: O2 Per Protocol; Complete Time: 16:28 [facility] 02/20 16:09 Order name: O2 Sat Monitoring; Complete Time: 16:28 [facility] EC:12 Rhythm is irregular. QRS [place] is Normal. T waves are Inverted. Clinical impression: NSR snw w/ Non-specific ST/T Changes. Administered Medications: 16:15 Drug: Aspirin Chewable Tablet 243 mg Route: PO; aa5 17:50 Follow up: Response: No adverse reaction aa5 16:30 Drug: Valium 5 mg Route: IVP; Site: left antecubital; aa5 16:47 Follow up: Response: No adverse reaction aa5 Disposition: 02/21 13:28 Co-signature as Attending Physician, Jose Elias Robbins MD I agree with the assessment and laura plan of care. Disposition: 02/21/20 18:18 Hospitalization ordered by Jhon Grigsby for Observation. Preliminary diagnosis are Chest pain, unspecified, Other specified cardiac arrhythmias - bigeminy. - Bed requested for Telemetry/MedSurg (observation). - Status is Observation. mg2 - Condition is Stable. - Problem is new. - Symptoms are unchanged. Signatures: Dispatcher [employer] EDMS Karissa Merida, RN Jose Elias Early MD MD cha Therrien, Shelly, TURBINE INSPECTOR-C TURBINE INSPECTOR-Csnw Adriana Zepeda RN RN aa5 Juli Schultz RN RN ss Chato Hoyos RN RN mg2 Corrections: (The following items were deleted from the chart) 02/20 18:19 18:18 Hospitalization Ordered by Jhon Grigsby DO for Observation. Preliminary kl diagnosis is Chest pain, unspecified; Other specified cardiac arrhythmias - bigeminy. Bed requested for Telemetry/MedSurg (observation). Status is Observation. Condition is Stable. Problem is new. Symptoms are unchanged. snw 20:02 18:19 02/21/2020 18:18 Hospitalization Ordered by Jhon Grigsby DO for Observation. mg2 Preliminary diagnosis is Chest pain, unspecified; Other specified cardiac arrhythmias - bigeminy. Bed requested for Telemetry/MedSurg (observation). Status is Observation. Condition is Stable. Problem is new. Symptoms are unchanged. kl
[2020-02-21] MEDS ORDERED: ACETAMINOPHEN 500 MG TAB PO PRN (20:14)
[2020-02-21] MEDS ORDERED: ONDANSETRON 4 MG/2 ML VIAL IV PRN (20:14)
[2020-02-21] MEDS ORDERED: TRAZODONE 50 MG TABLET PO PRN (20:14)
[2020-02-21 20:15] VITALS: BMI 38.2
[2020-02-21] MEDS ORDERED: QUETIAPINE 25 MG TAB PO SCH (21:00)
[2020-02-21] MEDS ORDERED: hydrOXYzine HCL 25 MG TAB PO SCH (21:00)
[2020-02-21] MEDS ORDERED: ATORVASTATIN 40 MG TAB PO SCH (21:00)
[2020-02-21] MEDS: INSULIN -REGULAR HUMAN 50 UNIT/0.5 ML ML SQ SCH (21:00)
[2020-02-21] MEDS: METOPROLOL TAR 50 MG TAB PO SCH (21:46)
[2020-02-21] MEDS: GABAPENTIN 300 MG CAP PO SCH (21:46)
[2020-02-22 01:05] LABS: Creatine Phosphokinase 98 U/L (39-308)
[2020-02-22 01:06] LABS: CKMB Creatine Kinase MB < 1.0 ng/mL (0.3-3.6); Troponin I < 0.02 ng/mL (0.0-0.045)
[2020-02-22 05:43] LABS: Absolute Lymphocytes (CBC) 1.5 K/uL (0.7-4.9); Basophils % 0.7 % (0-1.3); Hematocrit 35.1 % (39.6-49.0); Lymphocytes % 26.5 % (15.3-44.8); MPV 8.7 fL (7.6-11.3)
[2020-02-22 05:51] LABS: BUN Blood Urea Nitrogen 14 mg/dL (7-18); Bicarbonate 24 mmol/L (21-32); CKMB Creatine Kinase MB < 1.0 ng/mL (0.3-3.6); Creatine Phosphokinase 86 U/L (39-308); Glucose Level 98 mg/dL (74-106); HDL Cholesterol 40 mg/dL (40-60); LDL Cholesterol, Calculated 16 (<130); Magnesium 1.8 mg/dL (1.8-2.4); Potassium 3.8 mmol/L (3.5-5.1); Sodium Level 144 mmol/L (136-145); Troponin I < 0.02 ng/mL (0.0-0.045)
[2020-02-22] MEDS ORDERED: MAGNESIUM SULFATE 1 gm IVPB 1 GM/100 ML BAG IV ONE (06:01)
--- NOTE | 2020-02-22 07:25 | EKG ---
Test Date: 2020-02-21 Test Time: 16:23:02 Radial Router Operator: MIKE MEASUREMENT RESULTS: Intervals: Rate: 78 SC: 154 QRSD: 96 QT: 400 QTc: 456 [place]: P: 46 SC: 154 QRS: -44 T: 113 INTERPRETIVE STATEMENTS: Sinus rhythm with frequent premature ventricular complexes and fusion complexes Left axis deviation Pulmonary disease pattern Incomplete right bundle branch block ST & T wave abnormality, consider lateral ischemia Abnormal ECG Compared to ECG 07/22/2016 12:09:03 Fusion complex(es) now present Ventricular premature complex(es) now present Incomplete right bundle-branch block now present ST (T wave) deviation now present Possible ischemia now present Myocardial infarct finding no longer present Electronically Signed On 02-22-20 07:24:08 CDT by Mikey Nicole
[2020-02-22] MEDS ORDERED: POTASSIUM CL SA 10 MEQ TAB PO ONE (07:26)
[2020-02-22] MEDS: INSULIN -REGULAR HUMAN 50 UNIT/0.5 ML ML SQ SCH ×2 (07:30→11:30)
[2020-02-22 07:39] VITALS: O2SAT 95
--- NOTE | 2020-02-22 08:52 | CON ---
Date of Consultation: 02/22/2020 Reason For Consultation: Atypical chest pain. History Of Present Illness: Mr. King is a 65-year-old male. He has a history of anemia, dementia , diabetes, obesity, hypertension, dyslipidemia, seizure disorders, TIA, sleep apnea, and gout. He h as been having dyspnea on exertion for few months. Recently has been having chest pain that is atypi yessica. It is throughout his chest, but is sharp, stabbing, and would last 2-3 days at a time without a ny nausea, vomiting, or diaphoresis. He denied any PND, orthopnea, pedal edema, palpitation, or sync ope. His EKG showed sinus rhythm with PVCs, incomplete right bundle-branch block and left axis devia tion. Chest x-ray was normal. His troponin was normal. His blood work was unremarkable except for an elevated lipids. Past Medical History: As stated above. Allergies: MORPHINE AND TETANUS. Social History: Negative. Family History: Positive for heart disease in his father with CHF and CAD. Medications: Include aspirin, lisinopril, metformin, metoprolol, allopurinol, Dilantin, glipizide, a nd Lipitor. Physical Examination: Vital Signs: Stable, afebrile. HEENT: Negative. Neck: Supple with no bruit. Chest: Clear to auscultation and percussion. Cardiac: Revealed a regular rhythm and rate. No murmurs, gallops, or rubs. Abdomen: Benign. Extremities: Revealed no clubbing, cyanosis, or edema. Diagnostic Data: As stated earlier. Impression And Plan: Mr. King is a patient with multiple cardiac risk factors including diabetes, hypertension, dyslipidemia, obesity. He has had a heart catheterization many years ago that was neg ative. His chest x-ray is negative. His EKG is abnormal. I think an echocardiogram and Lexiscan ar e reasonable. We will see what these show prior to making final decisions. His other problems inclu ding hypertension, diabetes, and dyslipidemia are well controlled. He has chronic dementia that is s table. He has a history of TIA, seizures, sleep apnea, and gout disorders. These are stable and fol lowed by Dr. Grigsby. I will continue to follow him along. CHINMAY/RAY Voice ID: [id number] Report ID: [id number]
[2020-02-22] MEDS ORDERED: ASPIRIN EC 81 MG TAB PO SCH (09:00)
[2020-02-22] MEDS ORDERED: lisinopriL 20 MG TAB PO SCH (09:00)
[2020-02-22] MEDS ORDERED: ENOXAPARIN 40 MG/0.4 ML SQ SCH (09:00)
[2020-02-22] MEDS: GABAPENTIN 300 MG CAP PO SCH ×2 (09:00→11:58)
[2020-02-22] MEDS ORDERED: SERTRALINE HCL 100 MG TAB PO SCH (09:00)
[2020-02-22] MEDS: FUROSEMIDE 20 MG TABLET PO SCH ×2 (09:00→15:20)
[2020-02-22] MEDS ORDERED: allopurinoL 100 MG TAB PO SCH (09:00)
[2020-02-22] MEDS ORDERED: REGADENOSON 0.4 MG/5 ML SYR IV ONE (10:31)
[2020-02-22] MEDS: METOPROLOL TAR 50 MG TAB PO SCH (11:58)
--- NOTE | 2020-02-22 12:06 | RAD REPORT ---
EXAM DESCRIPTION: NM - Rest Stress Cardiac Imaging - 02/22/2020 12:00 pm CLINICAL HISTORY: CP Chest pain. COMPARISON: No comparisons TECHNIQUE: The patient was administered approximately 10mCi of Tc 99m Sestamibi prior to resting SPE CT imaging of the heart. The patient was then administered approximately 30 mCi of Tc 99m Sestamibi f ollowing exercise or pharmacologic stress. Multiplanar SPECT images were reviewed. FINDINGS: No stress induced ischemic defect is seen to suggest stress induced ischemia. No fixed def ect is seen to suggest hibernating myocardium or scarred myocardium. An area of myocardial thinning is seen on both rest and stress imaging along the septal region. The end diastolic volume is 127 ml, the end systolic volume is 64 ml, and the ejection fraction is 50 %. IMPRESSION: No stress induced ischemia.
--- NOTE | 2020-02-22 13:51 | P.DS ---
Admission Date: 02/21/20 Discharge Date: 02/22/20 Primary Care Provider: [facility] Disposition: ROUTINE DISCHARGE Discharge Condition: GOOD Reason for Admission: Chest pain Consultations: Cardiology-Dr. Nicole Procedures: ECHO: Performed Cardiac stress test: FINDINGS: No stress induced ischemic defect is seen to suggest stress induced ischemia. No fixed defect is seen to suggest hibernating myocardium or scarred myocardium. An area of myocardial thinning is seen on both rest and stress imaging along the septal region. The end diastolic volume is 127 ml, the end systolic volume is 64 ml, and the ejection fraction is 50 %. IMPRESSION: No stress induced ischemia Medical Problem List: Chest pain with mild shortness of breath with history of CAD with cardiac stress test showing no stress-induced ischemia, EF 50% Hypertension Diabetes mellitus type 2 [id number] Hyperlipidemia Posttraumatic stress disorder History of seizures no longer on medication Gout Diabetic neuropathy Obesity Brief History of Present Illness: 65-year-old male with history of CAD, hypertension, diabetes mellitus type 2 non-insulin dependent, gout, posttraumatic stress disorder, hyperlipidemia, neuropathy, and obesity. Patient reports chest pain. Chest pain reported to the substernal region. He has noticed increasing pain as of late. It is associated with some shortness of breath. He or she reports some anxiety. Patient reports a history of posttraumatic stress disorder. No increased stressors other than he is going through therapy and having some flashbacks. Patient further reports a history of CAD in the past. He had a heart catheterization many years ago. He was told he had some stenosis but no intervention was required. He has not followed up with cardiology. Patient also reports increasing blood pressure levels.Patient denies any fever, chills, nausea and vomiting. Patient reports some edema to the lower extremities. Patient further reports that he has history of seizure disorder. He has been taken off of his anti seizure medications 3 months ago. He has not reported any seizures. Patient evaluated emergency room. CBC unremarkable. Sodium 144, potassium 3.9, BUN of 14, creatinine 1.19 with a GFR 61. Glucose 133. Troponin unremarkable. Chest x-ray unremarkable. EKG shows no significant ST changes but bigeminy noted. Patient admitted for further evaluation and treatment. Patient was evaluated for transfer to the [facility] but they were to capacity. Therefore patient remains hospitalized here. When I saw the patient ER, at bedside. Chest pain resolved. Hospital Course: Patient presented with chest pain and mild shortness of breath. Cardiac enzymes unremarkable. Patient seen and evaluated by Cardiology. Patient had prior heart catheterization which was negative. Cardiology recommended cardiac stress test and echocardiogram. Cardiac stress test showed no stress-induced ischemia with ejection fraction of 50%. Echo performed. No further cardiac intervention required at this time. Chest pain may be related to his posttraumatic stress disorder. Recommend to continue with medical and cognitive therapy. Patient may continue with his current home medications. Patient with hypertension. This has remained stable. At discharge he will continue with metoprolol and lisinopril. Recommend to maintain blood pressure less 150/80. Further adjustment can be done by his PCP. Patient with diabetes mellitus type 2 [id number]. At discharge he will continue with metformin. Recommend to maintain blood sugar less than 140 fasting and less than 200 meals. Further adjustment can be done by his PCP. Patient with hyperlipidemia. At discharge he will continue with his current medication. Patient with posttraumatic stress disorder. Patient will continue with medical and cognitive therapy. Patient with history of gout and diabetic neuropathy. At discharge he may continue with his current medication. Vital Signs/Physical Exam: Temp Pulse Resp BP Pulse Ox 97.9 F 76 18 131/81 96 02/22/20 12:00 02/22/20 12:00 02/22/20 12:00 02/22/20 12:00 02/22/20 12:00 General: Alert, In no apparent distress, Oriented x3, Cooperative HEENT: Atraumatic Neck: Supple Respiratory: Clear to auscultation bilaterally, Normal air movement Cardiovascular: Normal pulses, Regular rate/rhythm Gastrointestinal: Normal bowel sounds, Soft and benign, Non-distended, No tenderness, No masses, No rebound Neurological: Normal speech, Normal strength at 5/5 x4 extr, Normal tone, Normal affect Laboratory Data at Discharge: WBC 5.7 K/uL (4.3-10.9) 02/22/20 05:24 Hgb 11.8 g/dL (13.6-17.9) L 02/22/20 05:24 Hct 35.1 % (39.6-49.0) L 02/22/20 05:24 Plt Count 168 K/uL (152-406) 02/22/20 05:24 Sodium 144 mmol/L (136-145) 02/22/20 05:24 Potassium 3.8 mmol/L (3.5-5.1) 02/22/20 05:24 BUN 14 mg/dL (7-18) 02/22/20 05:24 Creatinine 1.01 mg/dL (0.55-1.3) 02/22/20 05:24 Glucose 98 mg/dL (74-106) 02/22/20 05:24 Magnesium 1.8 mg/dL (1.8-2.4) 02/22/20 05:24 Total Bilirubin 0.3 mg/dL (0.2-1.0) 02/21/20 16:26 AST 17 U/L (15-37) 02/21/20 16:26 ALT 39 U/L (12-78) 02/21/20 16:26 Alkaline Phosphatase 87 U/L (45-117) 02/21/20 16:26 Troponin I < 0.02 ng/mL (0.0-0.045) 02/22/20 05:24 Triglycerides 192 mg/dL (<150) H 02/22/20 05:24 Cholesterol 94 mg/dL (<200) 02/22/20 05:24 HDL Cholesterol 40 mg/dL (40-60) 02/22/20 05:24 Cholesterol/HDL Ratio 2.35 02/22/20 05:24 Lipase 152 U/L (73-393) 02/21/20 16:26 Home Medications: Metformin HCl [Metformin ER Gastric] 1,000 mg PO BID 06/03/16 Metoprolol Tartrate [Lopressor*] 50 mg PO BID 06/03/16 Trazodone HCl [Desyrel] 100 mg PO PRN PRN 06/03/16 allopurinoL [Allopurinol] 100 mg PO DAILY 06/03/16 Aspirin [Aspirin EC 81 MG] 1 tab PO DAILY 02/21/20 Lisinopril [Zestril] 40 mg PO DAILY 02/21/20 Patient Discharge Instructions: 1. Recommend follow up with a PCP in 1 week to follow up this hospitalization. 2. Patient presented with chest pain and mild shortness of breath. Cardiac enzymes unremarkable. Patient seen and evaluated by Cardiology. Patient had prior heart catheterization which was negative. Cardiology recommended cardiac stress test and echocardiogram. Cardiac stress test showed no stress-induced ischemia with ejection fraction of 50%. Echo performed. No further cardiac intervention required at this time. Chest pain may be related to his posttraumatic stress disorder. Recommend to continue with medical and cognitive therapy. Patient may continue with his current home medications. 3. Patient with hypertension. This has remained stable. At discharge he will continue with metoprolol and lisinopril. Recommend to maintain blood pressure less 150/80. Further adjustment can be done by his PCP. 4. Patient with diabetes mellitus type 2 [id number]. At discharge he will continue with metformin. Recommend to maintain blood sugar less than 140 fasting and less than 200 meals. Further adjustment can be done by his PCP. 5. Patient with hyperlipidemia. At discharge he will continue with his current medication. 6. Patient with posttraumatic stress disorder. Patient will continue with medical and cognitive therapy. 7. Patient with history of gout and diabetic neuropathy. At discharge he may continue with his current medication. Diet: ADA Activity: Fall precautions Time spent managing pt's care (in minutes): 55
[2020-02-22 16:36] VITALS: BP 106/58; TEMP 97.8
--- NOTE | 2020-02-23 09:59 | TREADPHA ---
DX: CHEST PAIN Date of Study: 02/22/2020 Ht: 5' 11 " Wt: 274 lb 4 oz Consulting Physician: SOM MEDICATIONS: TYLENOL, ASPIRIN, LIPITOR, LOVENOX, NOVOLIN-R, NEUROTIN, LASIX, LOPRESSOR, PRINIVIL, ZOFRAN, SEROQUEL HISTORY: 65 YEAR OLD MALE WITH HISTORY OF NON INSULIN DEPENDENT DIABETES MELLITUS, GOUT, HYPERLIPIDEMIA, HYPERTENSION, OBESITY, SEIZURES, TRANSIENT ISCHEMIC ATTACK AND ANEMIA. ADMITTED FOR CHEST PRESSURE, SHORTNESS OF BREATH AND ABNORMAL EKG. PHYSICIAL EXAMINATION: RESTING B.P.: 141/96 RESTING H.R.: 70 RESTING EKG: SINUS RHYTHM, PREMATURE VENTRICULAR COMPLEXES, RIGHT BUNDLE BRANCH BLOCK PROTOCOL: LEXISCAN EXERCISE TIME: 3:30 B.P. AT PEAK STRESS: 126/78 IMPRESSION: LEXISCAN STRESS TEST PERFORMED. CARDIOLITE INJECTED PER PROTOCOL. NO SUPRAVENTRICULAR TACHYCARDIA, NO VENTRICULAR TACHYCARDIA. PREMATURE VENTRICULAR COMPLEXES AND PREMATURE ATRIAL COMPLEXES WERE NOTED. PATIENT DENIED CHEST PAIN. RESPIRATIONS WERE EVEN AND NON LABORED. PATIENT TOLERATED WELL. SEE NUCLEAR MEDICINE REPORT.
--- NOTE | 2020-02-23 12:16 | ECHO ---
HEIGHT: 5 ft 11 in WEIGHT: 274 lb 4 oz DATE OF STUDY: 02/22/[address]: Jhon Grigsby DO 2-DIMENSIONAL: YES M.MODE: YES DOPPLER: YES COLOR FLOW: YES TDS: YES PORTABLE: NO DEFINITY: NO BUBBLE STUDY: NO DIAGNOSIS: CHEST PAIN CARDIAC HISTORY: CATHERIZATION: NO SURGERY: NO PROSTHETIC VALVE: NO PACEMAKER: NO MEASUREMENTS (cm) DIASTOLIC (NORMALS) SYSTOLIC (NORMALS) IVSd 1.2 (0.6-1.2) LA Diam 4.0 (1.9-4.0) LVEF 59% LVIDd 5.3 (3.5-5.7) LVIDs 3.7 (2.0-3.5) %FS 31% LVPWd 1.2 (0.6-1.2) Ao Diam 3.2 (2.0-3.7) 2 DIMENSIONAL ASSESSMENT: RIGHT ATRIUM: NORMAL LEFT ATRIUM: NORMAL RIGHT VENTRICLE: NORMAL LEFT VENTRICLE: NORMAL TRICUSPID VALVE: NORMAL MITRAL VALVE: NORMAL PULMONIC VALVE: NORMAL AORTIC VALVE: NORMAL PERICARDIAL EFFUSION: NONE AORTIC ROOT: NORMAL LEFT VENTRICULAR WALL MOTION: NORMAL DOPPLER/COLOR FLOW: MILD TRICUSPID REGURGITATION. COMMENTS: TECHNICALLY DIFFICULT STUDY. NORMAL LEFT VENTRICULAR EJECTION FRACTION AND SIZE. NO EFFUSION. NO WALL MOTION ABNORMALITY. TECHNOLOGIST: Eriberto STOCKTON
== END 2020-02-22 16:05 | disposition home or self-care (01) ==
LOC: ER 15:29 → ERHOLD 17:54 → 2ND 19:47
PROVIDERS: ADMIT Family Medicine; ATTEND Family Medicine
DX: R07.89 Other chest pain (principal); I45.10 Unspecified right bundle-branch block; I49.3 Ventricular premature depolarization; I10 Essential (primary) hypertension; I25.10 Atherosclerotic heart disease of native coronary artery without angina pectoris; E11.40 Type 2 diabetes mellitus with diabetic neuropathy, unspecified; E78.5 Hyperlipidemia, unspecified; M10.9 Gout, unspecified; F43.10 Post-traumatic stress disorder, unspecified; E66.9 Obesity, unspecified; Z68.37 Body mass index [BMI] 37.0-37.9, adult; R06.02 Shortness of breath; Z20.828 Contact with and (suspected) exposure to other viral communicable diseases; G47.00 Insomnia, unspecified; F03.90 Unspecified dementia, unspecified severity, without behavioral disturbance, psychotic disturbance, mood disturbance, and anxiety; Z79.84 Long term (current) use of oral hypoglycemic drugs; Z79.82 Long term (current) use of aspirin; Z79.899 Other long term (current) drug therapy; Z85.828 Personal history of other malignant neoplasm of skin; Z86.73 Personal history of transient ischemic attack (TIA), and cerebral infarction without residual deficits; Z82.49 Family history of ischemic heart disease and other diseases of the circulatory system
CPT/HCPCS: 93005; 93017; 93306; 85025 ×2; 80048 ×2; 36415; 86900; 83735 ×2; 86850; 82550 ×2; 80061 ×2; 86901; 82947 ×3; 80076; 84443; 84484 ×3; 82553 ×2; 84439; 83690; 83880; 71045; 94660; 78452; 96374; 99285; U0002; J1650; J3360; J3475; J2785; A9500; G0378 ×3